=== PATIENT | female | born 1970 | race Caucasian/White ===

== ENCOUNTER 2021-04-14 12:03 | Inpatient (IN) | payer OTHER ==
[~2021-04-14] VITALS: Ht 165.1 cm; Wt 79.0 kg
[2021-04-14] MEDS ORDERED: HYDROcodone-ACET 10/325MG TAB PO ONE (12:15)
[2021-04-14] MEDS ORDERED: ENOXAPARIN SOD 100 MG/1 ML SYRINGE SC ONE (13:45)
[2021-04-14 13:46] LABS: Basophils # (auto) 0.1 10 ^3/uL (0-0.2); Basophils % (auto) 1.1 % (0.0-2.0); Eosinophils # (auto) 0 10 ^3/uL (0-0.8); Eosinophils % (auto) 0.2 % (0.0-7.0); Hematocrit 39.6 % (36.0-46.0); Hemoglobin 13.2 g/dL (12.2-16.2); Lymphocytes # (auto) 1.1 10 ^3/uL (0.4-5.4); Lymphocytes % (auto) 10.7 % (10.0-50.0); Mean Corpuscular Hemoglobin 28.4 pg (28.0-32.0); Mean Corpuscular Hgb Conc. 33.4 g/dL (32.0-36.0); Mean Corpuscular Volume 85.1 fL (80.0-100.0); Monocytes # (auto) 1.1 10 ^3/uL (0-1.3); Monocytes % (auto) 10.4 % (0.0-12.0); Neutrophils # (auto) 8.3 10 ^3/uL (1.6-8.6); Neutrophils % (auto) 77.6 % (37.0-80.0); Red Blood Cells 4.65 10^6/uL (4.0-5.20); Red Cell Distribution Width 13.6 % (11.8-14.3); White Blood Cell 10.8 10^3/uL (4.4-10.8)
[2021-04-14 13:54] LABS: Albumin 3.4 g/dL (3.4-5.0); Calcium 9.6 mg/dL (8.5-10.1); Potassium 4.5 mmol/L (3.5-5.1)
[2021-04-14] MEDS ORDERED: IOHEXOL 300 MG/ML 100ML BOTTLE IJ ONE (13:55)
[2021-04-14 13:58] LABS: Bilirubin, Total 0.9 mg/dL (0.2-1.0); Partial Thromboplastin Time 24.2 sec (23.6-33.0); Total Protein 7.1 g/dL (6.4-8.2)
[2021-04-14 16:42] LABS: Basophils # (auto) 0.1 10 ^3/uL (0-0.2); Basophils % (auto) 1.1 % (0.0-2.0); Eosinophils # (auto) 0.1 10 ^3/uL (0-0.8); Eosinophils % (auto) 0.5 % (0.0-7.0); Hematocrit 37.8 % (36.0-46.0); Hemoglobin 12.8 g/dL (12.2-16.2); Lymphocytes # (auto) 1.7 10 ^3/uL (0.4-5.4); Lymphocytes % (auto) 17.6 % (10.0-50.0); Mean Corpuscular Hemoglobin 28.9 pg (28.0-32.0); Mean Corpuscular Volume 85.2 fL (80.0-100.0); Monocytes # (auto) 0.9 10 ^3/uL (0-1.3); Monocytes % (auto) 9.8 % (0.0-12.0); Neutrophils # (auto) 6.7 10 ^3/uL (1.6-8.6); Nucleated Red Blood Cells % 0.1 %; Red Blood Cells 4.44 10^6/uL (4.0-5.20); Red Cell Distribution Width 13.8 % (11.8-14.3); White Blood Cell 9.5 10^3/uL (4.4-10.8)
[2021-04-14] MEDS: HEPARIN DRIP/D5W 100UNITS/ML 250 ML IV SCH (17:36)
[2021-04-14] MEDS ORDERED: ONDANSETRON HCL 4 MG/2 ML VIAL IV PRN (19:00)
[2021-04-14] MEDS ORDERED: MORPHINE SULFATE INJECTION 2 MG/ML SYRG IV PRN (19:00)
[2021-04-14] MEDS ORDERED: LABETALOL HCL 5 MG/ML 4ML SYRINGE IV PRN (19:00)
[2021-04-14] MEDS ORDERED: DOCUSATE CALCIUM 240 MG CAP PO PRN (19:00)
[2021-04-14] MEDS ORDERED: SODIUM CHLORIDE 0.9% 1,000 ML IV ONE (19:00)
[2021-04-14] MEDS ORDERED: NITROGLYCERIN 0.4 MG SL TAB SL PRN (19:00)
[2021-04-14 20:36] VITALS: BP 104/66
[2021-04-14 21:15] VITALS: BP 104/66
[2021-04-14] MEDS: MORPHINE SULFATE INJECTION 2 MG/ML SYRG IV PRN (21:34)
[2021-04-14 22:55] LABS: Urine Bacteria FEW /hpf (None Seen); Urine Blood 2+ /uL (Negative); Urine Mucus FEW (None Seen); Urine WBC 36 /hpf (0 - 5)
[2021-04-14 22:56] LABS: Urine Specific Gravity > 1.050 (1.001-1.035)
[2021-04-14] MEDS: SODIUM CHLORIDE 0.9% 1,000 ML IV SCH ×2 (23:00→23:11)
[2021-04-14] MEDS: LORazepam 2MG/ML-1ML VIAL IV PRN (23:40)
[2021-04-14 23:41] LABS: INR 1.11 (0.9-1.15); Partial Thromboplastin Time 66.9 sec (23.6-33.0)
[2021-04-15 05:00] VITALS: BP 103/74
[2021-04-15 07:03] LABS: Basophils # (auto) 0.1 10 ^3/uL (0-0.2); Basophils % (auto) 0.8 % (0.0-2.0); Eosinophils # (auto) 0.1 10 ^3/uL (0-0.8); Eosinophils % (auto) 1.3 % (0.0-7.0); Hematocrit 34.6 % (36.0-46.0); Lymphocytes # (auto) 1.5 10 ^3/uL (0.4-5.4); Lymphocytes % (auto) 23.1 % (10.0-50.0); Mean Corpuscular Hemoglobin 29.6 pg (28.0-32.0); Mean Corpuscular Hgb Conc. 34.7 g/dL (32.0-36.0); Mean Corpuscular Volume 85.1 fL (80.0-100.0); Monocytes # (auto) 0.9 10 ^3/uL (0-1.3); Monocytes % (auto) 14.1 % (0.0-12.0); Neutrophils # (auto) 3.9 10 ^3/uL (1.6-8.6); Neutrophils % (auto) 60.7 % (37.0-80.0); Nucleated Red Blood Cells % 0.1 %; Red Blood Cells 4.06 10^6/uL (4.0-5.20); Red Cell Distribution Width 14.1 % (11.8-14.3); White Blood Cell 6.4 10^3/uL (4.4-10.8)
[2021-04-15 07:17] LABS: INR 1.08 (0.9-1.15)
[2021-04-15 07:26] LABS: Chloride 112 mmol/L (98-107); Potassium 3.7 mmol/L (3.5-5.1); Sodium 142 mmol/L (136-145)
[2021-04-15 07:30] LABS: Albumin 2.6 g/dL (3.4-5.0); Anion Gap 9 (5-15); Blood Urea Nitrogen 16 mg/dL (7-18); Carbon Dioxide 21 mmol/L (21-32); Glucose 103 mg/dL (74-106)
[2021-04-15 07:31] LABS: Partial Thromboplastin Time 109.3 sec (23.6-33.0)
[2021-04-15] MEDS: MORPHINE SULFATE INJECTION 2 MG/ML SYRG IV PRN ×2 (07:52→20:47)
[2021-04-15 08:00] VITALS: BP 111/68
[2021-04-15 08:16] LABS: Alanine Aminotransferase 35 U/L (13-56); Alkaline Phosphatase 71 U/L (45-117); Aspartate Aminotransferase 23 U/L (15-37); BUN/Creatinine Ratio 18.8; Bilirubin, Total 0.9 mg/dL (0.2-1.0); GFR African American 91 mL/min; GFR Non-African American 75 mL/min
[2021-04-15] MEDS: SODIUM CHLORIDE 0.9% 1,000 ML IV SCH ×2 (08:50→20:01)
[2021-04-15] MEDS: PANTOPRAZOLE 40 MG TAB PO SCH (08:51)
[2021-04-15 09:00] VITALS: BP 111/68
[2021-04-15] MEDS: HEPARIN DRIP/D5W 100UNITS/ML 250 ML IV SCH ×2 (11:22→20:13)
[2021-04-15] MEDS ORDERED: IODIXANOL 320MG/ML 100ML BTL IV ONE ×2 (11:43→15:13)
[2021-04-15] MEDS ORDERED: LIDOCAINE 2%HCL (LOCAL ANESTH.) INJ 20ML MDV ONE ×2 (11:43→12:14)
[2021-04-15] MEDS ORDERED: fentaNYL CITRATE 100 MCG/2 ML VL ONE ×2 (12:02→14:37)
[2021-04-15] MEDS ORDERED: MIDAZOLAM HCL 2MG/2ML 2ml VIAL (1mg/ml) ONE ×2 (12:02→13:13)
[2021-04-15] MEDS ORDERED: HYDROmorphone HCL 2 MG/ML VL ONE ×2 (12:54→14:41)
[2021-04-15] MEDS ORDERED: HEPARIN SODIUM (PORCINE) 5000 UNITS/ML 1ML VIAL ONE ×3 (12:57→13:59)
[2021-04-15 13:00] VITALS: BP 145/99
[2021-04-15 13:01] LABS: Free T3 3.08 pg/mL (2.3-4.2); Free T4 (Free Thyroxine) 1.3 ng/dL (0.89-1.76)
[2021-04-15] MEDS ORDERED: LORazepam 2MG/ML-1ML VIAL ONE (13:42)
[2021-04-15] MEDS ORDERED: diphenhdrAMINE HCL 50 MG/1 ML VL ONE (13:52)
[2021-04-15] MEDS ORDERED: SODIUM CHLORIDE 0.9% 1,000 ML IV ONE (16:00)
[2021-04-15 17:54] LABS: Basophils # (auto) 0 10 ^3/uL (0-0.2); Basophils % (auto) 0.4 % (0.0-2.0); Eosinophils # (auto) 0 10 ^3/uL (0-0.8); Eosinophils % (auto) 0.5 % (0.0-7.0); Hematocrit 33.3 % (36.0-46.0); Hemoglobin 11.1 g/dL (12.2-16.2); Lymphocytes # (auto) 1.3 10 ^3/uL (0.4-5.4); Lymphocytes % (auto) 15.8 % (10.0-50.0); Mean Corpuscular Hemoglobin 28.8 pg (28.0-32.0); Mean Corpuscular Hgb Conc. 33.4 g/dL (32.0-36.0); Mean Corpuscular Volume 86.1 fL (80.0-100.0); Monocytes # (auto) 1.3 10 ^3/uL (0-1.3); Monocytes % (auto) 15.6 % (0.0-12.0); Neutrophils # (auto) 5.5 10 ^3/uL (1.6-8.6); Neutrophils % (auto) 67.7 % (37.0-80.0); Red Blood Cells 3.87 10^6/uL (4.0-5.20); Red Cell Distribution Width 13.8 % (11.8-14.3); White Blood Cell 8.1 10^3/uL (4.4-10.8)
[2021-04-15 19:08] LABS: Partial Thromboplastin Time > 139.0 sec (23.6-33.0)
[2021-04-15 23:03] VITALS: BP 117/67
[2021-04-16] MEDS: MORPHINE SULFATE INJECTION 2 MG/ML SYRG IV PRN ×4 (02:10→15:24)
[2021-04-16 02:36] LABS: INR 1.09 (0.9-1.15); Partial Thromboplastin Time 55.2 sec (23.6-33.0)
[2021-04-16 05:13] VITALS: BP 98/66
[2021-04-16 08:00] VITALS: BP 109/68
[2021-04-16 08:17] LABS: Basophils # (auto) 0 10 ^3/uL (0-0.2); Basophils % (auto) 0.7 % (0.0-2.0); Eosinophils # (auto) 0.1 10 ^3/uL (0-0.8); Hematocrit 28.8 % (36.0-46.0); Hemoglobin 9.5 g/dL (12.2-16.2); Lymphocytes # (auto) 1.2 10 ^3/uL (0.4-5.4); Lymphocytes % (auto) 19.4 % (10.0-50.0); Mean Corpuscular Hemoglobin 28.5 pg (28.0-32.0); Mean Corpuscular Hgb Conc. 33.2 g/dL (32.0-36.0); Mean Corpuscular Volume 85.9 fL (80.0-100.0); Monocytes # (auto) 0.9 10 ^3/uL (0-1.3); Monocytes % (auto) 14.6 % (0.0-12.0); Neutrophils # (auto) 3.9 10 ^3/uL (1.6-8.6); Neutrophils % (auto) 63.3 % (37.0-80.0); Red Blood Cells 3.35 10^6/uL (4.0-5.20); Red Cell Distribution Width 13.7 % (11.8-14.3); White Blood Cell 6.1 10^3/uL (4.4-10.8)
[2021-04-16 08:22] LABS: Albumin 2.2 g/dL (3.4-5.0); BUN/Creatinine Ratio 11.8; Magnesium 2.1 mg/dL (1.6-2.6); Potassium 3.7 mmol/L (3.5-5.1)
[2021-04-16 08:25] LABS: Bilirubin, Total 0.8 mg/dL (0.2-1.0); Total Protein 5.3 g/dL (6.4-8.2)
[2021-04-16 08:31] LABS: INR 1.05 (0.9-1.15); Partial Thromboplastin Time 45.3 sec (23.6-33.0)
[2021-04-16 09:00] VITALS: BP 109/68
[2021-04-16] MEDS: PANTOPRAZOLE 40 MG TAB PO SCH (09:10)
[2021-04-16] MEDS: HEPARIN DRIP/D5W 100UNITS/ML 250 ML IV SCH ×2 (10:49→22:10)
[2021-04-16] MEDS: SODIUM CHLORIDE 0.9% 1,000 ML IV SCH (10:50)
[2021-04-16 13:00] VITALS: BP 103/61
[2021-04-16 17:00] VITALS: BP 97/56
[2021-04-16] MEDS ORDERED: IOHEXOL 300 MG/ML 100ML BOTTLE IJ ONE (18:42)
[2021-04-16] MEDS: LORazepam 2MG/ML-1ML VIAL IV PRN (20:56)
[2021-04-16 21:41] LABS: INR 1.05 (0.9-1.15); Partial Thromboplastin Time 43.6 sec (23.6-33.0)
[2021-04-16] MEDS ORDERED: HYDROcodone-ACET 5/325MG TAB PO PRN (21:45)
[2021-04-16 22:00] VITALS: BP 111/70
[2021-04-17] VITALS (42 sets, daily range): BP systolic 69–153; BP diastolic 26–106
[2021-04-17] MEDS: MORPHINE SULFATE INJECTION 2 MG/ML SYRG IV PRN ×2 (00:06→03:45)
[2021-04-17] MEDS: SODIUM CHLORIDE 0.9% 1,000 ML IV SCH ×3 (00:20→21:15)
[2021-04-17] MEDS ORDERED: HYDROmorphone HCL 2 MG/ML VL IV ONE ×2 (00:30→02:00)
[2021-04-17] MEDS ORDERED: HYDROmorphone HCL 2 MG/ML VL IV PRN (05:15)
[2021-04-17] MEDS: LEVOTHYROXINE SODIUM 50 MCG TAB PO SCH (06:32)
[2021-04-17 06:44] LABS: Eosinophils # (auto) 0 10 ^3/uL (0-0.8); Lymphocytes % (auto) 9.6 % (10.0-50.0); Mean Corpuscular Volume 87.5 fL (80.0-100.0); Monocytes # (auto) 1.6 10 ^3/uL (0-1.3); Monocytes % (auto) 8.8 % (0.0-12.0)
[2021-04-17 06:46] LABS: Basophils # (auto) 0.1 10 ^3/uL (0-0.2); Basophils % (auto) 0.3 % (0.0-2.0); Eosinophils % (auto) 0.1 % (0.0-7.0); Hematocrit 22.3 % (36.0-46.0); Hemoglobin 7.3 g/dL (12.2-16.2); Lymphocytes # (auto) 1.7 10 ^3/uL (0.4-5.4); Mean Corpuscular Hemoglobin 28.5 pg (28.0-32.0); Mean Corpuscular Hgb Conc. 32.5 g/dL (32.0-36.0); Neutrophils # (auto) 14.5 10 ^3/uL (1.6-8.6); Neutrophils % (auto) 81.2 % (37.0-80.0); Red Blood Cells 2.55 10^6/uL (4.0-5.20); Red Cell Distribution Width 13.9 % (11.8-14.3); White Blood Cell 17.9 10^3/uL (4.4-10.8)
[2021-04-17 06:55] LABS: INR 1.13 (0.9-1.15); Partial Thromboplastin Time 68.6 sec (23.6-33.0)
[2021-04-17 07:07] LABS: BUN/Creatinine Ratio 8.3; Calcium 8.2 mg/dL (8.5-10.1); Magnesium 2.2 mg/dL (1.6-2.6); Potassium 3.6 mmol/L (3.5-5.1)
[2021-04-17] MEDS ORDERED: MIDAZOLAM DRIP 50 mg/50mL 50 ML IV ONE ×2 (08:20→14:24)
[2021-04-17] MEDS ORDERED: NOREPINEPHRINE 8 MG/250ML KIT 250 ML IV ONE (08:34)
[2021-04-17] MEDS ORDERED: LIDOCAINE 2%HCL (LOCAL ANESTH.) INJ 20ML MDV ONE ×2 (08:48→09:48)
[2021-04-17] MEDS ORDERED: IODIXANOL 320MG/ML 100ML BTL IV ONE ×4 (08:55→13:15)
[2021-04-17] MEDS ORDERED: ROCURONIUM 10MG/ML 10ML VIAL IV ONE (09:26)
[2021-04-17] MEDS ORDERED: ETOMIDATE (2MG/ML) 20ML VIAL IV ONE (09:27)
[2021-04-17] MEDS ORDERED: SUCCINYLCHOLINE CHLORIDE 20 MG/ML 10ML VIAL IV ONE (09:27)
[2021-04-17] MEDS: PANTOPRAZOLE 40 MG TAB PO SCH (10:00)
[2021-04-17] MEDS ORDERED: ATROPINE SULF 1 MG/10ml SYR ONE (10:03)
[2021-04-17] MEDS ORDERED: EPINEPHrine HCL 1 MG/10 ML SYRG ONE (10:03)
[2021-04-17] MEDS ORDERED: SODIUM BICARBONATE 8.4 % INJ 50ML VIAL IV ONE ×2 (10:38→10:40)
[2021-04-17] MEDS ORDERED: NITROGLYCERIN 0.4 MG SL TAB SL PRN (10:45)
[2021-04-17] MEDS ORDERED: SODIUM CHLORIDE 0.9% 1,000 ML IV SCH (10:45)
[2021-04-17] MEDS ORDERED: MORPHINE SULFATE INJECTION 2 MG/ML SYRG IV PRN (10:45)
[2021-04-17 10:59] LABS: Hemoglobin 7.8 g/dL (12.2-16.2); Mean Corpuscular Hemoglobin 28.2 pg (28.0-32.0); Mean Corpuscular Hgb Conc. 30.1 g/dL (32.0-36.0); Mean Corpuscular Volume 93.8 fL (80.0-100.0); Red Blood Cells 2.77 10^6/uL (4.0-5.20); Red Cell Distribution Width 14.2 % (11.8-14.3)
[2021-04-17 11:02] LABS: INR 1.63 (0.9-1.15)
[2021-04-17] MEDS ORDERED: IOHEXOL 350 MG/ML 100ML IJ ONE (11:44)
[2021-04-17 12:07] LABS: White Blood Cell 36.7 10^3/uL (4.4-10.8)
[2021-04-17 12:08] LABS: Basophils % (manual) 0 (0.0-2.0); Blast Cells 0; Eosinophils % (manual) 0 (0-7); Promyelocytes % 0; Reactive Lymphocytes 0
[2021-04-17] MEDS ORDERED: PIPERACILLIN-TAZO 4.5GM 100 ML IV ONE (12:45)
[2021-04-17 12:59] LABS: Band Neutrophils % (manual) 18; Lymphocytes % (manual) 24 (10.0-50.0); Metamyelocytes % 9; Monocytes % (manual) 9 (0-12); Myelocytes % 3
[2021-04-17 15:11] LABS: Red Cell Distribution Width 13.8 % (11.8-14.3)
[2021-04-17 15:13] LABS: Hematocrit 20.2 % (36.0-46.0); Mean Corpuscular Hemoglobin 28.6 pg (28.0-32.0); Mean Corpuscular Hgb Conc. 32.6 g/dL (32.0-36.0); Mean Corpuscular Volume 87.6 fL (80.0-100.0); White Blood Cell 12.1 10^3/uL (4.4-10.8)
[2021-04-17 15:18] LABS: Albumin 1.5 g/dL (3.4-5.0); Calcium 6.3 mg/dL (8.5-10.1); Potassium 3.6 mmol/L (3.5-5.1)
[2021-04-17 15:20] LABS: Hemoglobin 6.6 g/dL (12.2-16.2)
[2021-04-17 15:22] LABS: Basophils % (manual) 0 (0.0-2.0); Blast Cells 0; Myelocytes % 0; Promyelocytes % 0; Reactive Lymphocytes 0
[2021-04-17 15:35] LABS: BUN/Creatinine Ratio 8.7; Bilirubin, Total 0.8 mg/dL (0.2-1.0); Total Protein 3.7 g/dL (6.4-8.2)
[2021-04-17] MEDS: MIDAZOLAM DRIP 50 mg/50mL 50 ML IV SCH (16:30)
[2021-04-17] MEDS: NOREPINEPHRINE 8 MG/250ML KIT 250 ML IV SCH (16:30)
[2021-04-17 16:37] LABS: Band Neutrophils % (manual) 20; Eosinophils % (manual) 1 (0-7); Lymphocytes % (manual) 17 (10.0-50.0); Metamyelocytes % 4; Monocytes % (manual) 7 (0-12)
[2021-04-17] MEDS ORDERED: PHENYLEPHRINE IV 250 ML IV ONE (18:58)
[2021-04-17] MEDS: PHENYLEPHRINE IV 250 ML IV SCH (19:00)
[2021-04-17] MEDS: PIPERACILLIN-TAZO 4.5GM 100 ML IV SCH (22:04)
[2021-04-17] MEDS ORDERED: ALBUMIN 25% 100 ML IV ONE (22:15)
[2021-04-18] VITALS (108 sets, daily range): BP systolic 74–138; BP diastolic 32–69
[2021-04-18] MEDS: PHENYLEPHRINE IV 250 ML IV SCH ×3 (03:24→23:00)
[2021-04-18 04:29] LABS: Hematocrit 27.1 % (36.0-46.0); Hemoglobin 9.1 g/dL (12.2-16.2); Mean Corpuscular Hemoglobin 29.7 pg (28.0-32.0); Mean Corpuscular Hgb Conc. 33.7 g/dL (32.0-36.0); Red Blood Cells 3.08 10^6/uL (4.0-5.20); Red Cell Distribution Width 15.4 % (11.8-14.3); White Blood Cell 11.9 10^3/uL (4.4-10.8)
[2021-04-18 04:36] LABS: Basophils % (manual) 0 (0.0-2.0); Blast Cells 0; Eosinophils % (manual) 0 (0-7); Metamyelocytes % 0; Promyelocytes % 0; Reactive Lymphocytes 0
[2021-04-18 04:42] LABS: Potassium 3.3 mmol/L (3.5-5.1)
[2021-04-18 04:47] LABS: Albumin 2.1 g/dL (3.4-5.0); BUN/Creatinine Ratio 8.4
[2021-04-18 04:55] LABS: Total Protein 4.5 g/dL (6.4-8.2)
[2021-04-18 05:19] LABS: Bilirubin, Total 1.3 mg/dL (0.2-1.0)
[2021-04-18] MEDS: LEVOTHYROXINE SODIUM 50 MCG TAB PO SCH (05:20)
[2021-04-18] MEDS: PIPERACILLIN-TAZO 4.5GM 100 ML IV SCH ×3 (05:20→22:00)
[2021-04-18 05:26] LABS: Magnesium 1.7 mg/dL (1.6-2.6)
[2021-04-18 06:26] LABS: Band Neutrophils % (manual) 39; Lymphocytes % (manual) 13 (10.0-50.0); Monocytes % (manual) 15 (0-12); Myelocytes % 5
[2021-04-18] MEDS: PANTOPRAZOLE 40 MG TAB PO SCH (10:00)
[2021-04-18] MEDS: fentaNYL Drip 2500mCg/250mlNS 250 ML IV SCH (10:00)
[2021-04-18] MEDS ORDERED: POTASSIUM CHLORIDE 60 MEQ, LIDOCAINE 1% (LOCAL ANESTH.) 6 ML in SODIUM CHL 0.9% 500 ML IV ONE (11:00)
[2021-04-18] MEDS ORDERED: SODIUM BICARBONATE 8.4 % INJ 50ML VIAL IV ONE (12:44)
[2021-04-18 15:19] LABS: Hemoglobin 7.4 g/dL (12.2-16.2)
[2021-04-18 15:21] LABS: Hematocrit 21.9 % (36.0-46.0); Mean Corpuscular Hemoglobin 28.8 pg (28.0-32.0); Mean Corpuscular Hgb Conc. 33.7 g/dL (32.0-36.0); Mean Corpuscular Volume 85.4 fL (80.0-100.0); Red Blood Cells 2.56 10^6/uL (4.0-5.20); Red Cell Distribution Width 15.2 % (11.8-14.3); White Blood Cell 21.9 10^3/uL (4.4-10.8)
[2021-04-18 15:25] LABS: Basophils % (manual) 0 (0.0-2.0); Blast Cells 0; Eosinophils % (manual) 0 (0-7); Promyelocytes % 0; Reactive Lymphocytes 0
[2021-04-18 15:32] LABS: INR 1.47 (0.9-1.15); Partial Thromboplastin Time 29.6 sec (23.6-33.0)
[2021-04-18 15:37] LABS: Albumin 1.9 g/dL (3.4-5.0); Calcium 6.4 mg/dL (8.5-10.1); Potassium 4.8 mmol/L (3.5-5.1)
[2021-04-18 15:46] LABS: Total Protein 4.2 g/dL (6.4-8.2)
[2021-04-18] MEDS ORDERED: BUMETANIDE 2.5mg/10ml (0.25 mg/ml) INJ IV ONE (16:45)
[2021-04-18 16:54] LABS: Band Neutrophils % (manual) 38; Lymphocytes % (manual) 11 (10.0-50.0); Metamyelocytes % 2; Monocytes % (manual) 13 (0-12); Myelocytes % 1
[2021-04-18] MEDS: MIDAZOLAM DRIP 50 mg/50mL 50 ML IV SCH ×2 (17:59→21:00)
[2021-04-18] MEDS: NOREPINEPHRINE 8 MG/250ML KIT 250 ML IV SCH (18:00)
[2021-04-18] MEDS: SODIUM BICARBONATE 50ML VIAL 100 ML in D5W 5% 1,000 ML IV SCH ×2 (18:01→22:00)
[2021-04-19] VITALS (103 sets, daily range): BP systolic 84–131; BP diastolic 44–72
[2021-04-19] MEDS: NOREPINEPHRINE 8 MG/250ML KIT 250 ML IV SCH ×3 (00:18→23:01)
[2021-04-19] MEDS: MIDAZOLAM DRIP 50 mg/50mL 50 ML IV SCH ×3 (00:30→17:55)
[2021-04-19] MEDS: PHENYLEPHRINE IV 250 ML IV SCH ×3 (04:20→21:00)
[2021-04-19] MEDS ORDERED: FUROSEMIDE 100 MG/10ML VIAL IV SCH (06:00)
[2021-04-19] MEDS: PIPERACILLIN-TAZO 4.5GM 100 ML IV SCH (06:00)
[2021-04-19 06:20] LABS: Red Cell Distribution Width 15.7 % (11.8-14.3)
[2021-04-19 06:23] LABS: Mean Corpuscular Hgb Conc. 35.1 g/dL (32.0-36.0); Mean Corpuscular Volume 85.5 fL (80.0-100.0); Red Blood Cells 1.88 10^6/uL (4.0-5.20); White Blood Cell 20.8 10^3/uL (4.4-10.8)
[2021-04-19 06:34] LABS: INR 1.43 (0.9-1.15); Partial Thromboplastin Time 33.5 sec (23.6-33.0)
[2021-04-19 06:39] LABS: Potassium 4.8 mmol/L (3.5-5.1)
[2021-04-19 06:45] LABS: Hematocrit 16.2 % (36.0-46.0)
[2021-04-19 06:46] LABS: Hemoglobin 5.7 g/dL (12.2-16.2)
[2021-04-19 06:47] LABS: Basophils % (manual) 0 (0.0-2.0); Blast Cells 0; Promyelocytes % 0; Reactive Lymphocytes 0
[2021-04-19 06:52] LABS: Albumin 1.5 g/dL (3.4-5.0); BUN/Creatinine Ratio 10.1; Bilirubin, Total 0.8 mg/dL (0.2-1.0); Calcium 6.1 mg/dL (8.5-10.1); Total Protein 4.1 g/dL (6.4-8.2)
[2021-04-19 08:30] LABS: Band Neutrophils % (manual) 36; Eosinophils % (manual) 2 (0-7); Lymphocytes % (manual) 12 (10.0-50.0); Metamyelocytes % 6; Monocytes % (manual) 12 (0-12); Myelocytes % 1
[2021-04-19] MEDS: SODIUM BICARBONATE 50ML VIAL 100 ML in D5W 5% 1,000 ML IV SCH ×2 (09:00→17:15)
[2021-04-19 09:09] LABS: Hematocrit 16.4 % (36.0-46.0)
[2021-04-19 09:14] LABS: Hemoglobin 5.5 g/dL (12.2-16.2)
[2021-04-19] MEDS: fentaNYL Drip 2500mCg/250mlNS 250 ML IV SCH (09:45)
[2021-04-19] MEDS: FUROSEMIDE INJECTION 100 MG in SODIUM CHL 0.9% 100 ML IV SCH ×5 (10:50→21:57)
[2021-04-19] MEDS: FAMOTIDINE (10MG/ML) 2ML VL IV SCH (10:56)
[2021-04-19] MEDS ORDERED: LIDOCAINE 2% (LOCAL ANESTH.) PF 5ml SDV ONE (15:03)
[2021-04-19] MEDS ORDERED: LIDOCAINE 2%HCL (LOCAL ANESTH.) INJ 10ml MDV IJ ONE (15:03)
[2021-04-19] MEDS ORDERED: IOHEXOL 350 MG/ML 100ML IJ ONE (16:00)
[2021-04-19] MEDS ORDERED: SODIUM BICARBONATE 50ML VIAL 100 ML in D5W 5% 1,000 ML IV SCH (19:30)
[2021-04-19] MEDS: PIPERACILLIN-TAZOB 2.25GM 50 ML IV SCH (20:08)
[2021-04-20] VITALS (117 sets, daily range): BP systolic 60–167; BP diastolic 46–89
[2021-04-20] MEDS: FUROSEMIDE INJECTION 100 MG in SODIUM CHL 0.9% 100 ML IV SCH ×9 (00:13→22:01)
[2021-04-20] MEDS: PIPERACILLIN-TAZOB 2.25GM 50 ML IV SCH ×4 (00:13→22:01)
[2021-04-20] MEDS: MIDAZOLAM DRIP 50 mg/50mL 50 ML IV SCH ×5 (02:20→20:21)
[2021-04-20] MEDS: NOREPINEPHRINE 8 MG/250ML KIT 250 ML IV SCH ×4 (03:20→23:40)
[2021-04-20] MEDS: PHENYLEPHRINE IV 250 ML IV SCH ×3 (05:17→22:00)
[2021-04-20 05:21] LABS: Hematocrit 21.6 % (36.0-46.0); Hemoglobin 7.3 g/dL (12.2-16.2); Mean Corpuscular Hemoglobin 30.1 pg (28.0-32.0); Mean Corpuscular Volume 88.5 fL (80.0-100.0); Red Blood Cells 2.44 10^6/uL (4.0-5.20); Red Cell Distribution Width 16.9 % (11.8-14.3); White Blood Cell 24.3 10^3/uL (4.4-10.8)
[2021-04-20 05:35] LABS: Basophils % (manual) 0 (0.0-2.0); Blast Cells 0; Myelocytes % 0; Promyelocytes % 0
[2021-04-20 05:39] LABS: Potassium 5.3 mmol/L (3.5-5.1)
[2021-04-20 05:48] LABS: BUN/Creatinine Ratio 10.2
[2021-04-20 05:49] LABS: Albumin 1.6 g/dL (3.4-5.0); Bilirubin, Total 1.7 mg/dL (0.2-1.0); Calcium 6.5 mg/dL (8.5-10.1); Total Protein 4.4 g/dL (6.4-8.2)
[2021-04-20] MEDS ORDERED: SODIUM CHL 0.9% 1000 ML BAG XX ONE (07:00)
[2021-04-20 09:16] LABS: Band Neutrophils % (manual) 30; Eosinophils % (manual) 3 (0-7); Lymphocytes % (manual) 14 (10.0-50.0); Metamyelocytes % 1; Monocytes % (manual) 7 (0-12); Reactive Lymphocytes 2
[2021-04-20] MEDS: FAMOTIDINE (10MG/ML) 2ML VL IV SCH (10:07)
[2021-04-20] MEDS: fentaNYL Drip 2500mCg/250mlNS 250 ML IV SCH (10:10)
[2021-04-20] MEDS ORDERED: Nepro With Carb Steady 1 Liter Bottle GT SCH (14:00)
[2021-04-20 14:40] LABS: INR 1.16 (0.9-1.15); Partial Thromboplastin Time 29.3 sec (23.6-33.0)
[2021-04-20 14:44] LABS: Hematocrit 17.7 % (36.0-46.0); Mean Corpuscular Hemoglobin 30.8 pg (28.0-32.0); Mean Corpuscular Hgb Conc. 35.3 g/dL (32.0-36.0); Mean Corpuscular Volume 87.3 fL (80.0-100.0); Red Blood Cells 2.03 10^6/uL (4.0-5.20); Red Cell Distribution Width 16.3 % (11.8-14.3)
[2021-04-20 14:48] LABS: Hemoglobin 6.2 g/dL (12.2-16.2)
[2021-04-20 14:50] LABS: Basophils % (manual) 0 (0.0-2.0); Blast Cells 0; Promyelocytes % 0; Reactive Lymphocytes 0
[2021-04-20] MEDS ORDERED: [UNRECOGNIZED DRUG - OTHER] SCH (16:00)
[2021-04-20] MEDS ORDERED: SODIUM CHL 0.9% SCH (16:00)
[2021-04-20 16:25] LABS: Band Neutrophils % (manual) 22; Eosinophils % (manual) 2 (0-7); Lymphocytes % (manual) 10 (10.0-50.0); Metamyelocytes % 1; Monocytes % (manual) 4 (0-12); Myelocytes % 1
[2021-04-20] MEDS ORDERED: ALBUMIN 25% 100 ML IV ONE ×2 (16:30)
[2021-04-20] MEDS ORDERED: EPOETIN ALFA-EPBX 10,000 UNIT/1ML VIAL SC ONE (21:00)
[2021-04-21] VITALS (99 sets, daily range): BP systolic 82–120; BP diastolic 51–70
[2021-04-21] MEDS: MIDAZOLAM DRIP 50 mg/50mL 50 ML IV SCH ×3 (01:42→15:37)
[2021-04-21] MEDS: PIPERACILLIN-TAZOB 2.25GM 50 ML IV SCH ×5 (01:57→23:58)
[2021-04-21 04:38] LABS: Hematocrit 25.4 % (36.0-46.0); Mean Corpuscular Hemoglobin 30.7 pg (28.0-32.0); Mean Corpuscular Hgb Conc. 35.6 g/dL (32.0-36.0); Mean Corpuscular Volume 86.1 fL (80.0-100.0); Red Blood Cells 2.95 10^6/uL (4.0-5.20); Red Cell Distribution Width 15.6 % (11.8-14.3); White Blood Cell 18.2 10^3/uL (4.4-10.8)
[2021-04-21 04:46] LABS: Basophils % (manual) 0 (0.0-2.0); Blast Cells 0; Myelocytes % 0; Promyelocytes % 0; Reactive Lymphocytes 0
[2021-04-21 04:48] LABS: INR 1.14 (0.9-1.15); Partial Thromboplastin Time 27.9 sec (23.6-33.0)
[2021-04-21 04:51] LABS: Albumin 1.9 g/dL (3.4-5.0); Calcium 6.9 mg/dL (8.5-10.1); Potassium 4.2 mmol/L (3.5-5.1)
[2021-04-21 04:53] LABS: BUN/Creatinine Ratio 10.2; Bilirubin, Total 1.9 mg/dL (0.2-1.0); Total Protein 4.9 g/dL (6.4-8.2)
[2021-04-21] MEDS: FUROSEMIDE INJECTION 100 MG in SODIUM CHL 0.9% 100 ML IV SCH ×4 (05:15→17:15)
[2021-04-21] MEDS: PHENYLEPHRINE IV 250 ML IV SCH ×3 (06:20→23:00)
[2021-04-21 07:45] LABS: Band Neutrophils % (manual) 27; Eosinophils % (manual) 5 (0-7); Lymphocytes % (manual) 10 (10.0-50.0); Metamyelocytes % 1; Monocytes % (manual) 5 (0-12)
[2021-04-21] MEDS: fentaNYL Drip 2500mCg/250mlNS 250 ML IV SCH (09:45)
[2021-04-21] MEDS: FAMOTIDINE (10MG/ML) 2ML VL IV SCH (09:48)
[2021-04-21] MEDS: NOREPINEPHRINE 8 MG/250ML KIT 250 ML IV SCH (09:53)
[2021-04-21 10:24] LABS: Hepatitis A Ab IgM Negative; Hepatitis B Core IgM Negative; Hepatitis C Antibody Negative (Negative)
[2021-04-22] VITALS (107 sets, daily range): BP systolic 92–136; BP diastolic 55–79
[2021-04-22] MEDS: fentaNYL Drip 2500mCg/250mlNS 250 ML IV SCH
[2021-04-22] MEDS: FUROSEMIDE INJECTION 100 MG in SODIUM CHL 0.9% 100 ML IV SCH ×6 (00:21→21:31)
[2021-04-22] MEDS: MIDAZOLAM DRIP 50 mg/50mL 50 ML IV SCH (01:58)
[2021-04-22 04:39] LABS: Hematocrit 26.8 % (36.0-46.0)
[2021-04-22 04:43] LABS: Hemoglobin 9.1 g/dL (12.2-16.2); Mean Corpuscular Volume 88.2 fL (80.0-100.0); Red Blood Cells 3.04 10^6/uL (4.0-5.20); White Blood Cell 18.1 10^3/uL (4.4-10.8)
[2021-04-22 05:00] LABS: Albumin 1.8 g/dL (3.4-5.0); Potassium 4.3 mmol/L (3.5-5.1)
[2021-04-22 05:05] LABS: BUN/Creatinine Ratio 11.4; Bilirubin, Total 1.6 mg/dL (0.2-1.0); Calcium 7.6 mg/dL (8.5-10.1)
[2021-04-22 05:14] LABS: Basophils % (manual) 0 (0.0-2.0); Blast Cells 0; Promyelocytes % 0; Reactive Lymphocytes 0
[2021-04-22] MEDS: PIPERACILLIN-TAZOB 2.25GM 50 ML IV SCH ×3 (05:32→17:44)
[2021-04-22] MEDS ORDERED: SODIUM CHL 0.9% 1000 ML BAG XX ONE (07:00)
[2021-04-22] MEDS: PHENYLEPHRINE IV 250 ML IV SCH ×2 (07:20→15:40)
[2021-04-22 07:33] LABS: Band Neutrophils % (manual) 22; Eosinophils % (manual) 6 (0-7); Lymphocytes % (manual) 7 (10.0-50.0); Metamyelocytes % 2; Monocytes % (manual) 5 (0-12); Myelocytes % 1
[2021-04-22] MEDS: FAMOTIDINE (10MG/ML) 2ML VL IV SCH (10:00)
[2021-04-22] MEDS: NOREPINEPHRINE 8 MG/250ML KIT 250 ML IV SCH (16:30)
[2021-04-22] MEDS ORDERED: EPOETIN ALFA-EPBX 10,000 UNIT/1ML VIAL SC ONE (21:00)
[2021-04-22] MEDS: ALBUMIN 25% 100 ML IV SCH (21:34)
[2021-04-23] VITALS (107 sets, daily range): BP systolic 98–153; BP diastolic 57–86
[2021-04-23] MEDS: FUROSEMIDE INJECTION 100 MG in SODIUM CHL 0.9% 100 ML IV SCH ×5 (03:17→20:32)
[2021-04-23] MEDS: ALBUMIN 25% 100 ML IV SCH ×2 (04:31→11:17)
[2021-04-23 04:48] LABS: Basophils # (auto) 0.1 10 ^3/uL (0-0.2); Lymphocytes # (auto) 0.9 10 ^3/uL (0.4-5.4)
[2021-04-23 04:51] LABS: Basophils % (auto) 0.5 % (0.0-2.0); Eosinophils # (auto) 0.4 10 ^3/uL (0-0.8); Eosinophils % (auto) 2.8 % (0.0-7.0); Hematocrit 25.4 % (36.0-46.0); Hemoglobin 8.6 g/dL (12.2-16.2); Lymphocytes % (auto) 5.8 % (10.0-50.0); Mean Corpuscular Hemoglobin 30.6 pg (28.0-32.0); Monocytes # (auto) 1.2 10 ^3/uL (0-1.3); Monocytes % (auto) 7.6 % (0.0-12.0); Neutrophils # (auto) 13.2 10 ^3/uL (1.6-8.6); Neutrophils % (auto) 83.3 % (37.0-80.0); Nucleated Red Blood Cells % 0.9 %; Red Blood Cells 2.83 10^6/uL (4.0-5.20); Red Cell Distribution Width 16.2 % (11.8-14.3); White Blood Cell 15.9 10^3/uL (4.4-10.8)
[2021-04-23 05:17] LABS: Potassium 4.2 mmol/L (3.5-5.1)
[2021-04-23 05:28] LABS: BUN/Creatinine Ratio 13.4; Bilirubin, Total 1.6 mg/dL (0.2-1.0); Calcium 7.6 mg/dL (8.5-10.1); Total Protein 4.9 g/dL (6.4-8.2)
[2021-04-23] MEDS: PIPERACILLIN-TAZOB 2.25GM 50 ML IV SCH ×4 (06:00→18:14)
[2021-04-23] MEDS: PHENYLEPHRINE IV 250 ML IV SCH ×3 (08:20→16:40)
[2021-04-23] MEDS: fentaNYL Drip 2500mCg/250mlNS 250 ML IV SCH ×2 (09:45→14:09)
[2021-04-23] MEDS: FAMOTIDINE (10MG/ML) 2ML VL IV SCH (10:15)
[2021-04-23] MEDS: MIDAZOLAM DRIP 50 mg/50mL 50 ML IV SCH (14:09)
[2021-04-23 15:16] LABS: Hemoglobin 8.4 g/dL (12.2-16.2)
[2021-04-23 15:18] LABS: Hematocrit 24.1 % (36.0-46.0)
[2021-04-23] MEDS: NOREPINEPHRINE 8 MG/250ML KIT 250 ML IV SCH (16:30)
[2021-04-24] VITALS (106 sets, daily range): BP systolic 87–154; BP diastolic 52–85
[2021-04-24] MEDS: PHENYLEPHRINE IV 250 ML IV SCH ×3 (00:32→12:34)
[2021-04-24] MEDS: FUROSEMIDE INJECTION 100 MG in SODIUM CHL 0.9% 100 ML IV SCH ×8 (02:22→21:00)
[2021-04-24] MEDS: MIDAZOLAM DRIP 50 mg/50mL 50 ML IV SCH ×4 (02:22→23:52)
[2021-04-24 05:16] LABS: Hemoglobin 8.4 g/dL (12.2-16.2); Mean Corpuscular Volume 90.2 fL (80.0-100.0)
[2021-04-24 05:19] LABS: Hematocrit 25.1 % (36.0-46.0); Mean Corpuscular Hemoglobin 30.1 pg (28.0-32.0); Mean Corpuscular Hgb Conc. 33.4 g/dL (32.0-36.0); Red Blood Cells 2.79 10^6/uL (4.0-5.20); Red Cell Distribution Width 16.3 % (11.8-14.3); White Blood Cell 17.5 10^3/uL (4.4-10.8)
[2021-04-24 05:31] LABS: INR 1.13 (0.9-1.15); Partial Thromboplastin Time 26.3 sec (23.6-33.0)
[2021-04-24 05:32] LABS: Albumin 2.2 g/dL (3.4-5.0); Calcium 7.9 mg/dL (8.5-10.1); Potassium 4.1 mmol/L (3.5-5.1)
[2021-04-24 05:37] LABS: Bilirubin, Total 1.6 mg/dL (0.2-1.0)
[2021-04-24 05:51] LABS: Basophils % (manual) 0 (0.0-2.0); Blast Cells 0; Myelocytes % 0; Promyelocytes % 0; Reactive Lymphocytes 0
[2021-04-24] MEDS: PIPERACILLIN-TAZOB 2.25GM 50 ML IV SCH ×5 (05:55→23:52)
[2021-04-24] MEDS ORDERED: SODIUM CHL 0.9% 1000 ML BAG XX ONE (07:00)
[2021-04-24] MEDS ORDERED: ALBUMIN 25% 100 ML IV PRN (08:15)
[2021-04-24 08:39] LABS: Band Neutrophils % (manual) 10; Eosinophils % (manual) 6 (0-7); Lymphocytes % (manual) 16 (10.0-50.0); Metamyelocytes % 1; Monocytes % (manual) 2 (0-12)
[2021-04-24] MEDS: NOREPINEPHRINE 8 MG/250ML KIT 250 ML IV SCH (08:58)
[2021-04-24] MEDS: FAMOTIDINE (10MG/ML) 2ML VL IV SCH (10:09)
[2021-04-24] MEDS: fentaNYL Drip 2500mCg/250mlNS 250 ML IV SCH (10:11)
[2021-04-24] MEDS: Nepro With Carb Steady 1 Liter Bottle GT SCH (15:00)
[2021-04-24] MEDS ORDERED: EPOETIN ALFA-EPBX 10,000 UNIT/1ML VIAL SC ONE (21:00)
[2021-04-25] VITALS (85 sets, daily range): BP systolic 104–151; BP diastolic 59–81
[2021-04-25] MEDS: FUROSEMIDE INJECTION 100 MG in SODIUM CHL 0.9% 100 ML IV SCH ×3 (00:32→08:26)
[2021-04-25] MEDS: PHENYLEPHRINE IV 250 ML IV SCH ×3 (02:00→18:40)
[2021-04-25] MEDS: fentaNYL Drip 2500mCg/250mlNS 250 ML IV SCH ×2 (03:39→22:24)
[2021-04-25] MEDS: PIPERACILLIN-TAZOB 2.25GM 50 ML IV SCH ×2 (04:34→12:28)
[2021-04-25 04:58] LABS: Albumin 2.6 g/dL (3.4-5.0); INR 1.13 (0.9-1.15); Magnesium 2.7 mg/dL (1.6-2.6); Partial Thromboplastin Time 24.5 sec (23.6-33.0); Potassium 3.7 mmol/L (3.5-5.1)
[2021-04-25 05:05] LABS: BUN/Creatinine Ratio 13.6; Bilirubin, Total 1.5 mg/dL (0.2-1.0); Phosphorus 5.9 mg/dL (2.5-4.90); Total Protein 5.5 g/dL (6.4-8.2)
[2021-04-25 05:12] LABS: Hematocrit 24.3 % (36.0-46.0); Hemoglobin 8.1 g/dL (12.2-16.2); Mean Corpuscular Hemoglobin 30.3 pg (28.0-32.0); Mean Corpuscular Hgb Conc. 33.3 g/dL (32.0-36.0); Red Blood Cells 2.67 10^6/uL (4.0-5.20); White Blood Cell 22.8 10^3/uL (4.4-10.8)
[2021-04-25 05:17] LABS: Basophils % (manual) 0 (0.0-2.0); Blast Cells 0; Eosinophils % (manual) 0 (0-7); Myelocytes % 0; Promyelocytes % 0; Reactive Lymphocytes 0
[2021-04-25 06:33] LABS: Band Neutrophils % (manual) 21; Lymphocytes % (manual) 9 (10.0-50.0); Metamyelocytes % 1; Monocytes % (manual) 7 (0-12)
[2021-04-25] MEDS: FAMOTIDINE (10MG/ML) 2ML VL IV SCH (10:42)
[2021-04-25] MEDS: BUMETANIDE INJECTION 25 MG in GIVE UN-DILUTED 0 ML IV SCH (11:15)
[2021-04-25] MEDS ORDERED: VANCOMYCIN PER PHARMACY 0 MG IV SCH (15:15)
[2021-04-25] MEDS ORDERED: VANCOMYCIN 1GM/250ML 250 ML IV ONE (16:00)
[2021-04-25] MEDS: NOREPINEPHRINE 8 MG/250ML KIT 250 ML IV SCH (16:30)
[2021-04-25] MEDS: MEROPENEM 500MG IVPB 50 ML IV SCH (21:36)
[2021-04-25] MEDS: MIDAZOLAM DRIP 50 mg/50mL 50 ML IV SCH (21:36)
[2021-04-26] VITALS (35 sets, daily range): BP systolic 104–127; BP diastolic 62–78
[2021-04-26] MEDS: PHENYLEPHRINE IV 250 ML IV SCH ×2 (03:00→11:20)
[2021-04-26 03:54] LABS: Mean Corpuscular Hemoglobin 30.2 pg (28.0-32.0)
[2021-04-26 03:56] LABS: Hematocrit 24.7 % (36.0-46.0); Hemoglobin 8.1 g/dL (12.2-16.2); Mean Corpuscular Hgb Conc. 32.9 g/dL (32.0-36.0); Mean Corpuscular Volume 91.8 fL (80.0-100.0); Red Blood Cells 2.69 10^6/uL (4.0-5.20); Red Cell Distribution Width 17.7 % (11.8-14.3); White Blood Cell 24.6 10^3/uL (4.4-10.8)
[2021-04-26 04:00] LABS: Basophils % (manual) 0 (0.0-2.0); Blast Cells 0; Promyelocytes % 0; Reactive Lymphocytes 0
[2021-04-26 04:13] LABS: Calcium 8.1 mg/dL (8.5-10.1); Potassium 3.6 mmol/L (3.5-5.1)
[2021-04-26 04:15] LABS: BUN/Creatinine Ratio 13.1
[2021-04-26 04:17] LABS: Bilirubin, Total 1.5 mg/dL (0.2-1.0); Total Protein 5.2 g/dL (6.4-8.2)
[2021-04-26 04:20] LABS: Band Neutrophils % (manual) 28; Eosinophils % (manual) 2 (0-7); Lymphocytes % (manual) 5 (10.0-50.0); Metamyelocytes % 3; Monocytes % (manual) 13 (0-12); Myelocytes % 4
[2021-04-26] MEDS: FAMOTIDINE (10MG/ML) 2ML VL IV SCH (10:01)
[2021-04-26] MEDS: MEROPENEM 500MG IVPB 50 ML IV SCH ×2 (10:02→21:10)
[2021-04-26] MEDS: BUMETANIDE INJECTION 25 MG in GIVE UN-DILUTED 0 ML IV SCH (10:04)
[2021-04-26] MEDS: fentaNYL Drip 2500mCg/250mlNS 250 ML IV SCH (12:00)
[2021-04-26] MEDS: MIDAZOLAM DRIP 50 mg/50mL 50 ML IV SCH ×2 (15:12→20:31)
[2021-04-26] MEDS ORDERED: VANCOMYCIN 500 MG in D5W 5% 100 ML IV ONE (16:00)
[2021-04-26] MEDS: NOREPINEPHRINE 8 MG/250ML KIT 250 ML IV SCH (16:30)
[2021-04-27] VITALS (42 sets, daily range): BP systolic 94–124; BP diastolic 57–80
[2021-04-27] MEDS: MIDAZOLAM DRIP 50 mg/50mL 50 ML IV SCH ×6 (00:19→23:41)
[2021-04-27 06:15] LABS: Potassium 3.7 mmol/L (3.5-5.1)
[2021-04-27 06:17] LABS: BUN/Creatinine Ratio 14.2; Calcium 8.1 mg/dL (8.5-10.1)
[2021-04-27 06:25] LABS: Hematocrit 25.6 % (36.0-46.0); Hemoglobin 8.5 g/dL (12.2-16.2); Mean Corpuscular Hemoglobin 30.8 pg (28.0-32.0); Mean Corpuscular Hgb Conc. 33.3 g/dL (32.0-36.0); Mean Corpuscular Volume 92.3 fL (80.0-100.0); Red Blood Cells 2.77 10^6/uL (4.0-5.20); Red Cell Distribution Width 18.4 % (11.8-14.3); White Blood Cell 24.9 10^3/uL (4.4-10.8)
[2021-04-27 06:34] LABS: Basophils % (manual) 0 (0.0-2.0); Blast Cells 0; Promyelocytes % 0; Reactive Lymphocytes 0
[2021-04-27] MEDS ORDERED: SODIUM CHL 0.9% 1000 ML BAG XX ONE (07:00)
[2021-04-27 07:47] LABS: Band Neutrophils % (manual) 9; Eosinophils % (manual) 1 (0-7); Lymphocytes % (manual) 10 (10.0-50.0); Metamyelocytes % 2; Monocytes % (manual) 8 (0-12); Myelocytes % 3
[2021-04-27] MEDS: BUMETANIDE INJECTION 25 MG in GIVE UN-DILUTED 0 ML IV SCH (10:05)
[2021-04-27] MEDS: MEROPENEM 500MG IVPB 50 ML IV SCH ×2 (10:29→22:04)
[2021-04-27] MEDS: FAMOTIDINE (10MG/ML) 2ML VL IV SCH (10:29)
[2021-04-27] MEDS: fentaNYL Drip 2500mCg/250mlNS 250 ML IV SCH (13:30)
[2021-04-27] MEDS ORDERED: FLUCONAZOLE 200MG/100ML 100 ML IV ONE (15:00)
[2021-04-27] MEDS ORDERED: ALBUMIN 25% 100 ML IV ONE ×2 (15:30→15:45)
[2021-04-27] MEDS ORDERED: ALBUMIN 25% 100 ML IV SCH ×2 (15:45→16:30)
[2021-04-27] MEDS: NOREPINEPHRINE 8 MG/250ML KIT 250 ML IV SCH (16:30)
[2021-04-27 17:25] LABS: INR 1.08 (0.9-1.15); Partial Thromboplastin Time 23.2 sec (23.6-33.0)
[2021-04-27] MEDS ORDERED: EPOETIN ALFA-EPBX 10,000 UNIT/1ML VIAL SC ONE (21:00)
[2021-04-28] VITALS (66 sets, daily range): BP systolic 87–125; BP diastolic 50–81
[2021-04-28] MEDS: fentaNYL Drip 2500mCg/250mlNS 250 ML IV SCH ×2 (02:30→13:28)
[2021-04-28] MEDS: MIDAZOLAM DRIP 50 mg/50mL 50 ML IV SCH ×2 (03:30→14:10)
[2021-04-28 04:02] LABS: Hematocrit 23.4 % (36.0-46.0); Hemoglobin 7.8 g/dL (12.2-16.2); Mean Corpuscular Hemoglobin 30.6 pg (28.0-32.0); Mean Corpuscular Hgb Conc. 33.2 g/dL (32.0-36.0); Mean Corpuscular Volume 92.3 fL (80.0-100.0); Red Blood Cells 2.53 10^6/uL (4.0-5.20); Red Cell Distribution Width 18.7 % (11.8-14.3); White Blood Cell 27.2 10^3/uL (4.4-10.8)
[2021-04-28 04:15] LABS: Basophils % (manual) 0 (0.0-2.0); Blast Cells 0; Eosinophils % (manual) 0 (0-7); Promyelocytes % 0; Reactive Lymphocytes 0
[2021-04-28 04:22] LABS: BUN/Creatinine Ratio 13.7
[2021-04-28 08:49] LABS: Band Neutrophils % (manual) 12; Lymphocytes % (manual) 4 (10.0-50.0); Metamyelocytes % 1; Monocytes % (manual) 5 (0-12); Myelocytes % 1
[2021-04-28] MEDS: FLUCONAZOLE 200MG/100ML 100 ML IV SCH (10:29)
[2021-04-28] MEDS: FAMOTIDINE (10MG/ML) 2ML VL IV SCH (10:35)
[2021-04-28] MEDS: BUMETANIDE INJECTION 25 MG in GIVE UN-DILUTED 0 ML IV SCH (12:17)
[2021-04-28] MEDS: MEROPENEM 500MG IVPB 50 ML IV SCH ×2 (12:17→23:12)
[2021-04-28] MEDS ORDERED: ALBUMIN 25% 100 ML IV ONE (12:45)
[2021-04-28] MEDS ORDERED: metroNIDAZOLE 500 MG TAB PO ONE (13:30)
[2021-04-28] MEDS ORDERED: NYSTATIN TOPICAL POWDER 15GM TOP ONE (13:45)
[2021-04-28] MEDS: NOREPINEPHRINE 8 MG/250ML KIT 250 ML IV SCH (16:55)
[2021-04-28] MEDS: PROPOFOL 100 ML IV SCH (20:00)
[2021-04-28] MEDS: metroNIDAZOLE 500 MG TAB PO SCH (23:12)
[2021-04-28] MEDS: NYSTATIN TOPICAL POWDER 15GM TOP SCH (23:14)
[2021-04-29] VITALS (98 sets, daily range): BP systolic 98–136; BP diastolic 60–88
[2021-04-29] MEDS: metroNIDAZOLE 500 MG TAB PO SCH ×3 (06:00→21:42)
[2021-04-29] MEDS ORDERED: SODIUM CHL 0.9% 1000 ML BAG XX ONE (07:00)
[2021-04-29 07:09] LABS: Mean Corpuscular Hemoglobin 31.5 pg (28.0-32.0); Red Blood Cells 2.46 10^6/uL (4.0-5.20); Red Cell Distribution Width 19.5 % (11.8-14.3); White Blood Cell 23.1 10^3/uL (4.4-10.8)
[2021-04-29 07:13] LABS: Hematocrit 22.9 % (36.0-46.0); Hemoglobin 7.8 g/dL (12.2-16.2); Mean Corpuscular Hgb Conc. 33.8 g/dL (32.0-36.0); Mean Corpuscular Volume 92.9 fL (80.0-100.0)
[2021-04-29 07:22] LABS: Basophils % (manual) 0 (0.0-2.0); Blast Cells 0; Promyelocytes % 0; Reactive Lymphocytes 0
[2021-04-29 07:27] LABS: BUN/Creatinine Ratio 11.2; Calcium 8.2 mg/dL (8.5-10.1); Potassium 3.8 mmol/L (3.5-5.1)
[2021-04-29 07:29] LABS: % Iron Saturation 35.4 % (15-50)
[2021-04-29 08:13] LABS: Eosinophils % (manual) 2 (0-7); Lymphocytes % (manual) 6 (10.0-50.0); Myelocytes % 1
[2021-04-29 08:14] LABS: Band Neutrophils % (manual) 9; Metamyelocytes % 1; Monocytes % (manual) 6 (0-12)
[2021-04-29] MEDS ORDERED: LIDOCAINE 1% (LOCAL ANESTH.) PF 5ml SDV ID ONE (09:00)
[2021-04-29] MEDS: FAMOTIDINE (10MG/ML) 2ML VL IV SCH (09:49)
[2021-04-29] MEDS: NYSTATIN TOPICAL POWDER 15GM TOP SCH ×2 (09:49→22:00)
[2021-04-29] MEDS: SODIUM CHLOR 0.9% PF (SALINE LOCK) 10ML VIAL/SYR IV SCH ×2 (09:49→22:00)
[2021-04-29] MEDS: FLUCONAZOLE 200MG/100ML 100 ML IV SCH (09:49)
[2021-04-29] MEDS: MEROPENEM 500MG IVPB 50 ML IV SCH ×2 (11:00→21:42)
[2021-04-29] MEDS: BUMETANIDE INJECTION 25 MG in GIVE UN-DILUTED 0 ML IV SCH (11:15)
[2021-04-29] MEDS: NOREPINEPHRINE 8 MG/250ML KIT 250 ML IV SCH (16:30)
[2021-04-29] MEDS: MIDAZOLAM DRIP 50 mg/50mL 50 ML IV SCH (16:30)
[2021-04-29] MEDS: PROPOFOL 100 ML IV SCH (20:00)
[2021-04-30] VITALS (56 sets, daily range): BP systolic 113–154; BP diastolic 69–92
[2021-04-30] MEDS: BUMETANIDE INJECTION 25 MG in GIVE UN-DILUTED 0 ML IV SCH (01:30)
[2021-04-30 04:01] LABS: Hematocrit 25.8 % (36.0-46.0); Hemoglobin 8.5 g/dL (12.2-16.2); Mean Corpuscular Hemoglobin 30.4 pg (28.0-32.0); Mean Corpuscular Hgb Conc. 32.8 g/dL (32.0-36.0); Mean Corpuscular Volume 92.7 fL (80.0-100.0); Red Blood Cells 2.78 10^6/uL (4.0-5.20); Red Cell Distribution Width 19.3 % (11.8-14.3); White Blood Cell 20.5 10^3/uL (4.4-10.8)
[2021-04-30 04:10] LABS: Basophils % (manual) 0 (0.0-2.0); Blast Cells 0; Metamyelocytes % 0; Promyelocytes % 0; Reactive Lymphocytes 0
[2021-04-30 04:19] LABS: BUN/Creatinine Ratio 11.6; Calcium 8.3 mg/dL (8.5-10.1); Potassium 4.1 mmol/L (3.5-5.1)
[2021-04-30] MEDS: metroNIDAZOLE 500 MG TAB PO SCH ×3 (05:49→22:03)
[2021-04-30 06:15] LABS: Band Neutrophils % (manual) 7; Eosinophils % (manual) 1 (0-7); Lymphocytes % (manual) 7 (10.0-50.0); Monocytes % (manual) 5 (0-12); Myelocytes % 2
[2021-04-30] MEDS: fentaNYL Drip 2500mCg/250mlNS 250 ML IV SCH (09:07)
[2021-04-30] MEDS: SODIUM CHLOR 0.9% PF (SALINE LOCK) 10ML VIAL/SYR IV SCH ×2 (09:07→22:02)
[2021-04-30] MEDS: NYSTATIN TOPICAL POWDER 15GM TOP SCH ×2 (09:08→22:03)
[2021-04-30] MEDS: FAMOTIDINE (10MG/ML) 2ML VL IV SCH (10:33)
[2021-04-30] MEDS: FLUCONAZOLE 200MG/100ML 100 ML IV SCH (10:33)
[2021-04-30] MEDS: FLORASTOR (S. BOULARDII) 250 MG CAP PO SCH (10:33)
[2021-04-30] MEDS: MEROPENEM 500MG IVPB 50 ML IV SCH ×2 (11:26→22:02)
[2021-04-30] MEDS: MIDAZOLAM DRIP 50 mg/50mL 50 ML IV SCH (13:24)
[2021-04-30] MEDS: NOREPINEPHRINE 8 MG/250ML KIT 250 ML IV SCH (13:24)
[2021-04-30] MEDS: PROPOFOL 100 ML IV SCH (20:00)
[2021-05-01] VITALS (69 sets, daily range): BP systolic 99–153; BP diastolic 69–104
[2021-05-01 05:05] LABS: Hematocrit 27.2 % (36.0-46.0); Hemoglobin 8.9 g/dL (12.2-16.2); Mean Corpuscular Hemoglobin 30.1 pg (28.0-32.0); Mean Corpuscular Hgb Conc. 32.6 g/dL (32.0-36.0); Mean Corpuscular Volume 92.5 fL (80.0-100.0); Red Blood Cells 2.94 10^6/uL (4.0-5.20); Red Cell Distribution Width 19.7 % (11.8-14.3)
[2021-05-01 05:21] LABS: Basophils % (manual) 0 (0.0-2.0); Blast Cells 0; Promyelocytes % 0; Reactive Lymphocytes 0
[2021-05-01 05:22] LABS: INR 1.19 (0.9-1.15); Partial Thromboplastin Time 28.2 sec (23.6-33.0)
[2021-05-01] MEDS: metroNIDAZOLE 500 MG TAB PO SCH ×3 (06:13→21:24)
[2021-05-01 06:20] LABS: Magnesium 2.7 mg/dL (1.6-2.6)
[2021-05-01 07:14] LABS: Potassium 4.3 mmol/L (3.5-5.1)
[2021-05-01 07:19] LABS: BUN/Creatinine Ratio 11.6; Calcium 8.2 mg/dL (8.5-10.1)
[2021-05-01 08:33] LABS: Band Neutrophils % (manual) 10; Eosinophils % (manual) 2 (0-7); Lymphocytes % (manual) 5 (10.0-50.0); Metamyelocytes % 5; Monocytes % (manual) 11 (0-12); Myelocytes % 1
[2021-05-01] MEDS ORDERED: SODIUM CHL 0.9% 1000 ML BAG XX ONE (08:45)
[2021-05-01] MEDS: fentaNYL Drip 2500mCg/250mlNS 250 ML IV SCH (09:45)
[2021-05-01] MEDS: SODIUM CHLOR 0.9% PF (SALINE LOCK) 10ML VIAL/SYR IV SCH ×2 (10:00→21:24)
[2021-05-01] MEDS: NYSTATIN TOPICAL POWDER 15GM TOP SCH ×2 (10:00→21:25)
[2021-05-01] MEDS: FLORASTOR (S. BOULARDII) 250 MG CAP PO SCH (10:00)
[2021-05-01] MEDS: FLUCONAZOLE 200MG/100ML 100 ML IV SCH (12:00)
[2021-05-01] MEDS: MEROPENEM 500MG IVPB 50 ML IV SCH ×2 (12:00→21:24)
[2021-05-01] MEDS: FAMOTIDINE (10MG/ML) 2ML VL IV SCH (12:00)
[2021-05-01] MEDS ORDERED: EPOETIN ALFA-EPBX 10,000 UNIT/1ML VIAL SC ONE (21:00)
[2021-05-02] VITALS (38 sets, daily range): BP systolic 112–155; BP diastolic 78–101
[2021-05-02 05:05] LABS: Hematocrit 25.7 % (36.0-46.0); Hemoglobin 8.5 g/dL (12.2-16.2); Mean Corpuscular Hemoglobin 30.8 pg (28.0-32.0); Mean Corpuscular Hgb Conc. 33.2 g/dL (32.0-36.0); Mean Corpuscular Volume 92.7 fL (80.0-100.0); Red Blood Cells 2.78 10^6/uL (4.0-5.20); Red Cell Distribution Width 19.7 % (11.8-14.3); White Blood Cell 20.6 10^3/uL (4.4-10.8)
[2021-05-02 05:11] LABS: Basophils % (manual) 0 (0.0-2.0); Blast Cells 0; Eosinophils % (manual) 0 (0-7); Metamyelocytes % 0; Promyelocytes % 0; Reactive Lymphocytes 0
[2021-05-02 05:30] LABS: Albumin 2.4 g/dL (3.4-5.0); Calcium 8.2 mg/dL (8.5-10.1); Potassium 4.1 mmol/L (3.5-5.1)
[2021-05-02 05:34] LABS: BUN/Creatinine Ratio 11.5; Bilirubin, Total 0.8 mg/dL (0.2-1.0); Total Protein 6.6 g/dL (6.4-8.2)
[2021-05-02] MEDS: metroNIDAZOLE 500 MG TAB PO SCH ×2 (06:12→13:29)
[2021-05-02 06:49] LABS: Band Neutrophils % (manual) 15; Lymphocytes % (manual) 6 (10.0-50.0); Monocytes % (manual) 6 (0-12); Myelocytes % 6
[2021-05-02] MEDS: fentaNYL Drip 2500mCg/250mlNS 250 ML IV SCH (09:45)
[2021-05-02] MEDS ORDERED: BUMETANIDE 2.5mg/10ml (0.25 mg/ml) INJ IV SCH (10:00)
[2021-05-02] MEDS: PROPOFOL 100 ML IV SCH (10:10)
[2021-05-02] MEDS: NOREPINEPHRINE 8 MG/250ML KIT 250 ML IV SCH (10:10)
[2021-05-02] MEDS: MIDAZOLAM DRIP 50 mg/50mL 50 ML IV SCH (10:10)
[2021-05-02] MEDS: FLORASTOR (S. BOULARDII) 250 MG CAP PO SCH (10:11)
[2021-05-02] MEDS: FAMOTIDINE (10MG/ML) 2ML VL IV SCH (10:11)
[2021-05-02] MEDS: MEROPENEM 500MG IVPB 50 ML IV SCH ×2 (10:11→21:57)
[2021-05-02] MEDS: FLUCONAZOLE 200MG/100ML 100 ML IV SCH (10:11)
[2021-05-02] MEDS: SODIUM CHLOR 0.9% PF (SALINE LOCK) 10ML VIAL/SYR IV SCH ×2 (10:11→21:57)
[2021-05-02] MEDS: NYSTATIN TOPICAL POWDER 15GM TOP SCH ×2 (10:12→21:57)
[2021-05-02] MEDS: Nepro With Carb Steady 1 Liter Bottle GT SCH (14:12)
[2021-05-02] MEDS ORDERED: ENOXAPARIN SOD 30 MG/0.3 ML SYRINGE SC ONE (14:45)
[2021-05-02] MEDS: BUMETANIDE 2.5mg/10ml (0.25 mg/ml) INJ IV SCH (21:56)
[2021-05-03] VITALS (30 sets, daily range): BP systolic 108–152; BP diastolic 73–106
[2021-05-03 04:30] LABS: Hemoglobin 8.4 g/dL (12.2-16.2)
[2021-05-03 04:32] LABS: Hematocrit 24.8 % (36.0-46.0); Mean Corpuscular Hemoglobin 31.3 pg (28.0-32.0); Mean Corpuscular Hgb Conc. 33.9 g/dL (32.0-36.0); Mean Corpuscular Volume 92.2 fL (80.0-100.0); Red Blood Cells 2.68 10^6/uL (4.0-5.20); Red Cell Distribution Width 18.9 % (11.8-14.3)
[2021-05-03 04:42] LABS: Calcium 8.4 mg/dL (8.5-10.1); Potassium 4.3 mmol/L (3.5-5.1)
[2021-05-03 04:46] LABS: BUN/Creatinine Ratio 11.7
[2021-05-03 04:49] LABS: Basophils % (manual) 0 (0.0-2.0); Blast Cells 0; Promyelocytes % 0; Reactive Lymphocytes 0
[2021-05-03] MEDS ORDERED: SODIUM CHL 0.9% 1000 ML BAG XX ONE (07:00)
[2021-05-03 07:03] LABS: Band Neutrophils % (manual) 10
[2021-05-03 07:04] LABS: Eosinophils % (manual) 2 (0-7); Lymphocytes % (manual) 7 (10.0-50.0); Metamyelocytes % 3; Monocytes % (manual) 14 (0-12); Myelocytes % 2
[2021-05-03] MEDS: fentaNYL Drip 2500mCg/250mlNS 250 ML IV SCH (09:45)
[2021-05-03] MEDS: SODIUM CHLOR 0.9% PF (SALINE LOCK) 10ML VIAL/SYR IV SCH ×2 (10:57→21:25)
[2021-05-03] MEDS: MEROPENEM 500MG IVPB 50 ML IV SCH ×2 (10:57→21:25)
[2021-05-03] MEDS: FLUCONAZOLE 200MG/100ML 100 ML IV SCH (10:57)
[2021-05-03] MEDS: BUMETANIDE 2.5mg/10ml (0.25 mg/ml) INJ IV SCH ×2 (10:57→21:25)
[2021-05-03] MEDS: FLORASTOR (S. BOULARDII) 250 MG CAP PO SCH (10:58)
[2021-05-03] MEDS: ENOXAPARIN SOD 30 MG/0.3 ML SYRINGE SC SCH (10:58)
[2021-05-03] MEDS: NYSTATIN TOPICAL POWDER 15GM TOP SCH ×2 (10:58→21:25)
[2021-05-03] MEDS: NOREPINEPHRINE 8 MG/250ML KIT 250 ML IV SCH (16:00)
[2021-05-03] MEDS: MIDAZOLAM DRIP 50 mg/50mL 50 ML IV SCH (16:00)
[2021-05-03] MEDS: PROPOFOL 100 ML IV SCH (20:00)
[2021-05-03] MEDS ORDERED: EPOETIN ALFA-EPBX 10,000 UNIT/1ML VIAL SC ONE (21:00)
[2021-05-04] VITALS (37 sets, daily range): BP systolic 129–163; BP diastolic 73–95
[2021-05-04 04:01] LABS: BUN/Creatinine Ratio 10.1; Potassium 3.2 mmol/L (3.5-5.1)
[2021-05-04] MEDS: fentaNYL Drip 2500mCg/250mlNS 250 ML IV SCH (08:34)
[2021-05-04] MEDS: ENOXAPARIN SOD 30 MG/0.3 ML SYRINGE SC SCH (11:45)
[2021-05-04] MEDS: SODIUM CHLOR 0.9% PF (SALINE LOCK) 10ML VIAL/SYR IV SCH ×2 (11:45→21:44)
[2021-05-04] MEDS: FLUCONAZOLE 200MG/100ML 100 ML IV SCH (11:45)
[2021-05-04] MEDS: FAMOTIDINE (10MG/ML) 2ML VL IV SCH (11:45)
[2021-05-04] MEDS: NYSTATIN TOPICAL POWDER 15GM TOP SCH ×2 (11:45→21:43)
[2021-05-04] MEDS: FLORASTOR (S. BOULARDII) 250 MG CAP PO SCH (11:45)
[2021-05-04] MEDS: BUMETANIDE 2.5mg/10ml (0.25 mg/ml) INJ IV SCH ×3 (11:45→21:42)
[2021-05-04] MEDS: FREE WATER GT SCH ×2 (11:45→18:00)
[2021-05-04] MEDS: MEROPENEM 500MG IVPB 50 ML IV SCH ×2 (12:00→21:43)
[2021-05-04] MEDS: NOREPINEPHRINE 8 MG/250ML KIT 250 ML IV SCH (16:02)
[2021-05-04] MEDS: MIDAZOLAM DRIP 50 mg/50mL 50 ML IV SCH (16:02)
[2021-05-04] MEDS: PROPOFOL 100 ML IV SCH (20:00)
[2021-05-05] VITALS (31 sets, daily range): BP systolic 124–157; BP diastolic 74–99
[2021-05-05] MEDS: FREE WATER GT SCH ×4 (00:10→18:00)
[2021-05-05 04:17] LABS: Hemoglobin 7.7 g/dL (12.2-16.2); Mean Corpuscular Hemoglobin 31.2 pg (28.0-32.0); Mean Corpuscular Volume 92.5 fL (80.0-100.0); Red Blood Cells 2.47 10^6/uL (4.0-5.20)
[2021-05-05 04:21] LABS: Hematocrit 22.8 % (36.0-46.0); Mean Corpuscular Hgb Conc. 33.7 g/dL (32.0-36.0); Red Cell Distribution Width 18.3 % (11.8-14.3); White Blood Cell 14.2 10^3/uL (4.4-10.8)
[2021-05-05 04:28] LABS: Basophils % (manual) 0 (0.0-2.0); Blast Cells 0; Eosinophils % (manual) 0 (0-7); Metamyelocytes % 0; Promyelocytes % 0; Reactive Lymphocytes 0
[2021-05-05 04:39] LABS: Calcium 8.2 mg/dL (8.5-10.1); Potassium 3.1 mmol/L (3.5-5.1)
[2021-05-05] MEDS: BUMETANIDE 2.5mg/10ml (0.25 mg/ml) INJ IV SCH ×3 (05:49→22:00)
[2021-05-05 06:50] LABS: Band Neutrophils % (manual) 10; Lymphocytes % (manual) 10 (10.0-50.0); Monocytes % (manual) 9 (0-12); Myelocytes % 2
[2021-05-05] MEDS ORDERED: SODIUM CHL 0.9% 1000 ML BAG XX ONE (08:00)
[2021-05-05] MEDS: fentaNYL Drip 2500mCg/250mlNS 250 ML IV SCH (09:45)
[2021-05-05] MEDS: ENOXAPARIN SOD 30 MG/0.3 ML SYRINGE SC SCH (09:51)
[2021-05-05] MEDS: NYSTATIN TOPICAL POWDER 15GM TOP SCH ×2 (09:51→22:00)
[2021-05-05] MEDS: FLUCONAZOLE 200MG/100ML 100 ML IV SCH (09:51)
[2021-05-05] MEDS: FLORASTOR (S. BOULARDII) 250 MG CAP PO SCH (09:52)
[2021-05-05] MEDS: SODIUM CHLOR 0.9% PF (SALINE LOCK) 10ML VIAL/SYR IV SCH ×2 (09:52→22:00)
[2021-05-05] MEDS: PROPOFOL 100 ML IV SCH (09:53)
[2021-05-05] MEDS: MEROPENEM 500MG IVPB 50 ML IV SCH ×2 (10:19→12:00)
[2021-05-05] MEDS ORDERED: POTASSIUM CHLORIDE 20 MEQ, LIDOCAINE 1% (LOCAL ANESTH.) 2 ML in SODIUM CHL 0.9% 100 ML IV ONE (15:15)
[2021-05-05] MEDS: NOREPINEPHRINE 8 MG/250ML KIT 250 ML IV SCH (16:30)
[2021-05-05] MEDS: MIDAZOLAM DRIP 50 mg/50mL 50 ML IV SCH (16:30)
[2021-05-05] MEDS ORDERED: EPOETIN ALFA-EPBX 10,000 UNIT/1ML VIAL SC ONE (21:00)
[2021-05-06] VITALS (48 sets, daily range): BP systolic 109–168; BP diastolic 70–103
[2021-05-06] MEDS: MEROPENEM 500MG IVPB 50 ML IV SCH ×2 (03:10→12:04)
[2021-05-06 04:48] LABS: Hematocrit 24.6 % (36.0-46.0); Hemoglobin 8.3 g/dL (12.2-16.2); Mean Corpuscular Hemoglobin 31.3 pg (28.0-32.0); Mean Corpuscular Hgb Conc. 33.8 g/dL (32.0-36.0); Mean Corpuscular Volume 92.5 fL (80.0-100.0); Red Blood Cells 2.66 10^6/uL (4.0-5.20); Red Cell Distribution Width 18.4 % (11.8-14.3); White Blood Cell 15.1 10^3/uL (4.4-10.8)
[2021-05-06 04:53] LABS: Band Neutrophils % (manual) 0; Basophils % (manual) 0 (0.0-2.0); Blast Cells 0; Eosinophils % (manual) 0 (0-7); Metamyelocytes % 0; Myelocytes % 0; Promyelocytes % 0; Reactive Lymphocytes 0
[2021-05-06 05:06] LABS: Calcium 8.2 mg/dL (8.5-10.1)
[2021-05-06] MEDS: FREE WATER GT SCH ×3 (06:00→12:00)
[2021-05-06] MEDS: BUMETANIDE 2.5mg/10ml (0.25 mg/ml) INJ IV SCH ×3 (06:39→21:29)
[2021-05-06] MEDS ORDERED: CATHFLO ACTIVASE (ALTEPLASE) 2 MG VIAL IV ONE (08:15)
[2021-05-06] MEDS ORDERED: SODIUM CHL 0.9% 1000 ML BAG XX ONE (08:15)
[2021-05-06] MEDS: fentaNYL Drip 2500mCg/250mlNS 250 ML IV SCH (08:48)
[2021-05-06 10:30] LABS: Lymphocytes % (manual) 5 (10.0-50.0); Monocytes % (manual) 9 (0-12)
[2021-05-06] MEDS: FAMOTIDINE (10MG/ML) 2ML VL IV SCH (10:39)
[2021-05-06] MEDS: ENOXAPARIN SOD 30 MG/0.3 ML SYRINGE SC SCH (10:39)
[2021-05-06] MEDS: NYSTATIN TOPICAL POWDER 15GM TOP SCH ×2 (10:39→21:31)
[2021-05-06] MEDS: FLORASTOR (S. BOULARDII) 250 MG CAP PO SCH (10:39)
[2021-05-06] MEDS: SODIUM CHLOR 0.9% PF (SALINE LOCK) 10ML VIAL/SYR IV SCH ×2 (10:40→21:30)
[2021-05-06] MEDS: FLUCONAZOLE 200MG/100ML 100 ML IV SCH (12:04)
[2021-05-06] MEDS: NOREPINEPHRINE 8 MG/250ML KIT 250 ML IV SCH (13:38)
[2021-05-06] MEDS: MIDAZOLAM DRIP 50 mg/50mL 50 ML IV SCH (14:16)
[2021-05-06] MEDS ORDERED: PIPERACILLIN-TAZOB 2.25GM 50 ML IV ONE (16:15)
[2021-05-06] MEDS: PROPOFOL 100 ML IV SCH (16:21)
[2021-05-06] MEDS: Nepro With Carb Steady 1 Liter Bottle GT SCH (18:31)
[2021-05-06] MEDS ORDERED: EPOETIN ALFA-EPBX 10,000 UNIT/1ML VIAL SC ONE (21:00)
[2021-05-06] MEDS: PIPERACILLIN-TAZOB 2.25GM 50 ML IV SCH (21:30)
[2021-05-07] VITALS (36 sets, daily range): BP systolic 101–156; BP diastolic 63–104
[2021-05-07 04:10] LABS: Basophils # (auto) 0.1 10 ^3/uL (0-0.2); Basophils % (auto) 1.1 % (0.0-2.0); Hematocrit 23.8 % (36.0-46.0); Mean Corpuscular Hemoglobin 31.1 pg (28.0-32.0); Nucleated Red Blood Cells % 0.1 %; White Blood Cell 12.9 10^3/uL (4.4-10.8)
[2021-05-07 04:14] LABS: Eosinophils # (auto) 0.2 10 ^3/uL (0-0.8); Eosinophils % (auto) 1.9 % (0.0-7.0); Lymphocytes % (auto) 8.1 % (10.0-50.0); Mean Corpuscular Hgb Conc. 33.5 g/dL (32.0-36.0); Mean Corpuscular Volume 92.8 fL (80.0-100.0); Monocytes # (auto) 1.6 10 ^3/uL (0-1.3); Monocytes % (auto) 12.7 % (0.0-12.0); Neutrophils # (auto) 9.8 10 ^3/uL (1.6-8.6); Neutrophils % (auto) 76.2 % (37.0-80.0); Red Blood Cells 2.56 10^6/uL (4.0-5.20); Red Cell Distribution Width 18.6 % (11.8-14.3)
[2021-05-07 04:32] LABS: Albumin 2.6 g/dL (3.4-5.0); BUN/Creatinine Ratio 7.4; Bilirubin, Total 1.2 mg/dL (0.2-1.0); Calcium 8.3 mg/dL (8.5-10.1); Total Protein 6.7 g/dL (6.4-8.2)
[2021-05-07 04:53] LABS: Potassium 2.9 mmol/L (3.5-5.1)
[2021-05-07] MEDS: PIPERACILLIN-TAZOB 2.25GM 50 ML IV SCH ×3 (05:50→22:17)
[2021-05-07] MEDS: BUMETANIDE 2.5mg/10ml (0.25 mg/ml) INJ IV SCH ×3 (05:50→22:18)
[2021-05-07] MEDS: POTASSIUM CHL 20MEQ/100ML 100 ML IV SCH ×2 (06:18→14:36)
[2021-05-07] MEDS: fentaNYL Drip 2500mCg/250mlNS 250 ML IV SCH (09:45)
[2021-05-07] MEDS: FLORASTOR (S. BOULARDII) 250 MG CAP PO SCH (10:00)
[2021-05-07] MEDS: NYSTATIN TOPICAL POWDER 15GM TOP SCH ×2 (10:00→22:18)
[2021-05-07] MEDS: SODIUM CHLOR 0.9% PF (SALINE LOCK) 10ML VIAL/SYR IV SCH ×2 (12:40→22:18)
[2021-05-07] MEDS: FLUCONAZOLE 200MG/100ML 100 ML IV SCH ×2 (12:40→14:36)
[2021-05-08] VITALS (28 sets, daily range): BP systolic 125–150; BP diastolic 69–103
[2021-05-08 04:18] LABS: Basophils # (auto) 0 10 ^3/uL (0-0.2); Eosinophils # (auto) 0.3 10 ^3/uL (0-0.8); Mean Corpuscular Hemoglobin 31.3 pg (28.0-32.0); Mean Corpuscular Hgb Conc. 33.7 g/dL (32.0-36.0)
[2021-05-08 04:29] LABS: Basophils % (auto) 0.2 % (0.0-2.0); Eosinophils % (auto) 2.1 % (0.0-7.0); Hematocrit 24.2 % (36.0-46.0); Hemoglobin 8.2 g/dL (12.2-16.2); Lymphocytes # (auto) 1.3 10 ^3/uL (0.4-5.4); Lymphocytes % (auto) 10.1 % (10.0-50.0); Mean Corpuscular Volume 92.9 fL (80.0-100.0); Monocytes # (auto) 1.6 10 ^3/uL (0-1.3); Monocytes % (auto) 12.9 % (0.0-12.0); Neutrophils # (auto) 9.4 10 ^3/uL (1.6-8.6); Neutrophils % (auto) 74.7 % (37.0-80.0); Nucleated Red Blood Cells % 0.1 %; Red Blood Cells 2.61 10^6/uL (4.0-5.20); Red Cell Distribution Width 17.9 % (11.8-14.3); White Blood Cell 12.5 10^3/uL (4.4-10.8)
[2021-05-08 04:45] LABS: Calcium 8.2 mg/dL (8.5-10.1)
[2021-05-08 04:48] LABS: BUN/Creatinine Ratio 7.4
[2021-05-08] MEDS: BUMETANIDE 2.5mg/10ml (0.25 mg/ml) INJ IV SCH ×3 (05:54→21:57)
[2021-05-08] MEDS: PIPERACILLIN-TAZOB 2.25GM 50 ML IV SCH ×3 (05:54→21:57)
[2021-05-08 09:23] LABS: Magnesium 2.1 mg/dL (1.6-2.6); Phosphorus 5.4 mg/dL (2.5-4.90)
[2021-05-08] MEDS: POTASSIUM CHL 20MEQ/100ML 100 ML IV SCH ×2 (09:29→11:11)
[2021-05-08] MEDS: FLORASTOR (S. BOULARDII) 250 MG CAP PO SCH (10:00)
[2021-05-08] MEDS: FAMOTIDINE (10MG/ML) 2ML VL IV SCH (10:13)
[2021-05-08] MEDS: SODIUM CHLOR 0.9% PF (SALINE LOCK) 10ML VIAL/SYR IV SCH ×2 (10:19→21:57)
[2021-05-08] MEDS: NYSTATIN TOPICAL POWDER 15GM TOP SCH ×2 (10:19→21:57)
[2021-05-09 05:00] VITALS: BP 142/78
[2021-05-09] MEDS: PIPERACILLIN-TAZOB 2.25GM 50 ML IV SCH ×2 (05:41→14:00)
[2021-05-09] MEDS: BUMETANIDE 2.5mg/10ml (0.25 mg/ml) INJ IV SCH (05:42)
[2021-05-09 07:19] LABS: Basophils # (auto) 0.2 10 ^3/uL (0-0.2); Basophils % (auto) 2.2 % (0.0-2.0); Eosinophils # (auto) 0.3 10 ^3/uL (0-0.8); Hematocrit 25.5 % (36.0-46.0); Hemoglobin 8.7 g/dL (12.2-16.2); Lymphocytes # (auto) 0.9 10 ^3/uL (0.4-5.4); Lymphocytes % (auto) 8.7 % (10.0-50.0); Mean Corpuscular Hemoglobin 31.6 pg (28.0-32.0); Mean Corpuscular Volume 92.8 fL (80.0-100.0); Monocytes # (auto) 1.2 10 ^3/uL (0-1.3); Monocytes % (auto) 12.5 % (0.0-12.0); Neutrophils # (auto) 7.3 10 ^3/uL (1.6-8.6); Neutrophils % (auto) 73.6 % (37.0-80.0); Nucleated Red Blood Cells % 0.3 %; Red Blood Cells 2.75 10^6/uL (4.0-5.20); Red Cell Distribution Width 18.1 % (11.8-14.3); White Blood Cell 9.9 10^3/uL (4.4-10.8)
[2021-05-09 07:34] LABS: Calcium 8.3 mg/dL (8.5-10.1)
[2021-05-09 07:36] LABS: BUN/Creatinine Ratio 8.6
[2021-05-09 08:13] LABS: Potassium 2.9 mmol/L (3.5-5.1)
[2021-05-09 09:00] VITALS: BP 139/77
[2021-05-09] MEDS: FLORASTOR (S. BOULARDII) 250 MG CAP PO SCH (10:00)
[2021-05-09] MEDS ORDERED: ENOXAPARIN SOD 30 MG/0.3 ML SYRINGE SC ONE (10:30)
[2021-05-09] MEDS ORDERED: SODIUM BICARBONATE 50ML VIAL 50 ML in SOD CHL 0.45% 1,000 ML IV SCH (10:45)
[2021-05-09] MEDS ORDERED: BUMETANIDE 2.5mg/10ml (0.25 mg/ml) INJ IV SCH ×2 (10:45→18:00)
[2021-05-09] MEDS ORDERED: POTASSIUM EFFERVESENT TAB 25 MEQ PO ONE (10:45)
[2021-05-09] MEDS ORDERED: POTASSIUM CHL 20MEQ/100ML 100 ML IV SCH (10:45)
[2021-05-09] MEDS: NYSTATIN TOPICAL POWDER 15GM TOP SCH (12:10)
[2021-05-09] MEDS: POTASSIUM CHL 20MEQ/100ML 100 ML IV SCH ×3 (12:11→16:07)
[2021-05-09] MEDS: SODIUM CHLOR 0.9% PF (SALINE LOCK) 10ML VIAL/SYR IV SCH (12:12)
[2021-05-09 13:00] VITALS: BP 132/80
[2021-05-09 17:00] VITALS: BP 155/83
[2021-05-09] MEDS: FLUCONAZOLE 200MG/100ML 100 ML IV SCH (18:04)
[2021-05-09] MEDS: SOD CHL 0.45% 1,000 ML IV SCH ×2 (19:11→20:45)
[2021-05-09 22:00] VITALS: BP 124/73
[2021-05-10] MEDS: SODIUM CHLOR 0.9% PF (SALINE LOCK) 10ML VIAL/SYR IV SCH ×3 (00:16→21:32)
[2021-05-10] MEDS: NYSTATIN TOPICAL POWDER 15GM TOP SCH ×3 (00:17→21:33)
[2021-05-10] MEDS: PIPERACILLIN-TAZOB 2.25GM 50 ML IV SCH ×4 (00:18→21:33)
[2021-05-10] MEDS: SOD CHL 0.45% 1,000 ML IV SCH ×2 (04:13→18:12)
[2021-05-10 05:00] VITALS: BP 131/82
[2021-05-10 07:30] LABS: Basophils # (auto) 0.2 10 ^3/uL (0-0.2); Eosinophils # (auto) 0.5 10 ^3/uL (0-0.8); Eosinophils % (auto) 4.9 % (0.0-7.0); Hematocrit 24.9 % (36.0-46.0); Hemoglobin 8.5 g/dL (12.2-16.2); Lymphocytes # (auto) 1.2 10 ^3/uL (0.4-5.4); Lymphocytes % (auto) 12.5 % (10.0-50.0); Mean Corpuscular Hemoglobin 31.8 pg (28.0-32.0); Mean Corpuscular Volume 93.5 fL (80.0-100.0); Monocytes # (auto) 1.2 10 ^3/uL (0-1.3); Monocytes % (auto) 12.7 % (0.0-12.0); Neutrophils # (auto) 6.4 10 ^3/uL (1.6-8.6); Neutrophils % (auto) 67.9 % (37.0-80.0); Nucleated Red Blood Cells % 0.5 %; Red Blood Cells 2.66 10^6/uL (4.0-5.20); Red Cell Distribution Width 18.1 % (11.8-14.3); White Blood Cell 9.4 10^3/uL (4.4-10.8)
[2021-05-10 07:44] LABS: Potassium 3.1 mmol/L (3.5-5.1)
[2021-05-10 07:48] LABS: BUN/Creatinine Ratio 10.8
[2021-05-10 09:00] VITALS: BP 140/90
[2021-05-10] MEDS ORDERED: POTASSIUM EFFERVESENT TAB 25 MEQ PO ONE (10:15)
[2021-05-10] MEDS: FLUCONAZOLE 200MG/100ML 100 ML IV SCH (10:16)
[2021-05-10] MEDS: FAMOTIDINE (10MG/ML) 2ML VL IV SCH (10:16)
[2021-05-10] MEDS: ENOXAPARIN SOD 30 MG/0.3 ML SYRINGE SC SCH (10:17)
[2021-05-10] MEDS: BUMETANIDE 2.5mg/10ml (0.25 mg/ml) INJ IV SCH (10:18)
[2021-05-10] MEDS: FLORASTOR (S. BOULARDII) 250 MG CAP PO SCH (11:52)
[2021-05-10] MEDS: POTASSIUM CHL 20MEQ/100ML 100 ML IV SCH ×2 (11:52→14:44)
[2021-05-10 13:00] VITALS: BP 141/90
[2021-05-10] MEDS: ACETAMINOPHEN 500 MG TAB PO PRN (14:58)
[2021-05-10 17:38] VITALS: BP 119/73
[2021-05-10 22:00] VITALS: BP 125/83
[2021-05-11] MEDS: SOD CHL 0.45% 1,000 ML IV SCH ×2 (02:55→21:55)
[2021-05-11] MEDS: PIPERACILLIN-TAZOB 2.25GM 50 ML IV SCH (05:11)
[2021-05-11 05:27] VITALS: BP 141/95
[2021-05-11 08:06] LABS: Immunoglobulin G, Serum 1388 mg/dL (586-1602)
[2021-05-11 08:27] LABS: Basophils # (auto) 0.2 10 ^3/uL (0-0.2); Basophils % (auto) 2.2 % (0.0-2.0); Eosinophils # (auto) 0.3 10 ^3/uL (0-0.8); Eosinophils % (auto) 3.5 % (0.0-7.0); Hematocrit 26.5 % (36.0-46.0); Hemoglobin 8.6 g/dL (12.2-16.2); Lymphocytes # (auto) 0.9 10 ^3/uL (0.4-5.4); Lymphocytes % (auto) 9.2 % (10.0-50.0); Mean Corpuscular Hemoglobin 30.9 pg (28.0-32.0); Mean Corpuscular Hgb Conc. 32.6 g/dL (32.0-36.0); Mean Corpuscular Volume 94.8 fL (80.0-100.0); Monocytes % (auto) 10.6 % (0.0-12.0); Neutrophils # (auto) 7.3 10 ^3/uL (1.6-8.6); Neutrophils % (auto) 74.5 % (37.0-80.0); Nucleated Red Blood Cells % 0.4 %; White Blood Cell 9.8 10^3/uL (4.4-10.8)
[2021-05-11 08:32] LABS: Potassium 3.2 mmol/L (3.5-5.1)
[2021-05-11 08:38] LABS: BUN/Creatinine Ratio 11.8; Calcium 7.6 mg/dL (8.5-10.1)
[2021-05-11 09:00] VITALS: BP 137/89
[2021-05-11] MEDS: BUMETANIDE 2.5mg/10ml (0.25 mg/ml) INJ IV SCH (10:45)
[2021-05-11] MEDS: FLORASTOR (S. BOULARDII) 250 MG CAP PO SCH (10:45)
[2021-05-11] MEDS: SODIUM CHLOR 0.9% PF (SALINE LOCK) 10ML VIAL/SYR IV SCH ×2 (10:45→21:55)
[2021-05-11] MEDS: ENOXAPARIN SOD 30 MG/0.3 ML SYRINGE SC SCH (10:45)
[2021-05-11] MEDS: FLUCONAZOLE 200MG/100ML 100 ML IV SCH (10:45)
[2021-05-11] MEDS: NYSTATIN TOPICAL POWDER 15GM TOP SCH ×2 (10:46→21:56)
[2021-05-11 13:00] VITALS: BP 134/89
[2021-05-11] MEDS: POTASSIUM CHL 20MEQ/100ML 100 ML IV SCH ×2 (13:48→18:16)
[2021-05-11 18:00] VITALS: BP 154/92
[2021-05-11 21:56] VITALS: BP 124/83
[2021-05-12 04:46] VITALS: BP 10/87
[2021-05-12 07:34] LABS: BUN/Creatinine Ratio 11.2; Calcium 8.2 mg/dL (8.5-10.1); Potassium 3.1 mmol/L (3.5-5.1)
[2021-05-12 08:33] VITALS: BP 157/89
[2021-05-12 09:30] VITALS: BP 141/79
[2021-05-12] MEDS: cefTRIAXone 1GM/50ML D5W 50 ML IV SCH (09:48)
[2021-05-12] MEDS: BUMETANIDE 2.5mg/10ml (0.25 mg/ml) INJ IV SCH (09:50)
[2021-05-12] MEDS: FLUCONAZOLE 200MG/100ML 100 ML IV SCH (09:50)
[2021-05-12] MEDS: FAMOTIDINE (10MG/ML) 2ML VL IV SCH (09:52)
[2021-05-12] MEDS: SODIUM CHLOR 0.9% PF (SALINE LOCK) 10ML VIAL/SYR IV SCH ×2 (09:52→21:02)
[2021-05-12] MEDS: ENOXAPARIN SOD 30 MG/0.3 ML SYRINGE SC SCH (09:53)
[2021-05-12] MEDS: FLORASTOR (S. BOULARDII) 250 MG CAP PO SCH (09:53)
[2021-05-12] MEDS: NYSTATIN TOPICAL POWDER 15GM TOP SCH ×3 (09:54→22:51)
[2021-05-12] MEDS ORDERED: POTASSIUM CHL 20 Meq TABLET PO ONE ×2 (10:30→11:45)
[2021-05-12 14:08] VITALS: BP 115/96
[2021-05-12 17:00] VITALS: BP 143/77
[2021-05-12] MEDS: APIXABAN 2.5 MG TAB PO SCH (21:03)
[2021-05-12 21:59] VITALS: BP 135/76
[2021-05-13] MEDS: ACETAMINOPHEN 500 MG TAB PO PRN (02:51)
[2021-05-13 04:53] VITALS: BP 127/87
[2021-05-13 06:36] LABS: Potassium 3.2 mmol/L (3.5-5.1)
[2021-05-13 06:49] LABS: BUN/Creatinine Ratio 11.7; Calcium 8.2 mg/dL (8.5-10.1)
[2021-05-13 08:00] VITALS: BP 146/98
[2021-05-13] MEDS: cefTRIAXone 1GM/50ML D5W 50 ML IV SCH (09:00)
[2021-05-13] MEDS: SODIUM CHLOR 0.9% PF (SALINE LOCK) 10ML VIAL/SYR IV SCH ×2 (10:12→22:09)
[2021-05-13] MEDS: APIXABAN 2.5 MG TAB PO SCH ×2 (10:12→22:09)
[2021-05-13] MEDS: FLORASTOR (S. BOULARDII) 250 MG CAP PO SCH (10:12)
[2021-05-13] MEDS: NYSTATIN TOPICAL POWDER 15GM TOP SCH ×2 (10:13→22:10)
[2021-05-13] MEDS: FAMOTIDINE 20 MG TAB PO SCH (10:13)
[2021-05-13 12:00] VITALS: BP 148/96
[2021-05-13] MEDS: POTASSIUM CHL 20MEQ/100ML 100 ML IV SCH ×2 (14:50→16:02)
[2021-05-13 16:59] VITALS: BP 149/90
[2021-05-14 05:00] VITALS: BP 144/89
[2021-05-14 05:43] LABS: Basophils # (auto) 0.1 10 ^3/uL (0-0.2); Basophils % (auto) 1.3 % (0.0-2.0); Eosinophils # (auto) 0.6 10 ^3/uL (0-0.8); Eosinophils % (auto) 6.1 % (0.0-7.0); Hemoglobin 9.1 g/dL (12.2-16.2); Lymphocytes # (auto) 1.2 10 ^3/uL (0.4-5.4); Lymphocytes % (auto) 12.4 % (10.0-50.0); Mean Corpuscular Hemoglobin 31.3 pg (28.0-32.0); Mean Corpuscular Hgb Conc. 33.8 g/dL (32.0-36.0); Mean Corpuscular Volume 92.4 fL (80.0-100.0); Monocytes # (auto) 1.3 10 ^3/uL (0-1.3); Monocytes % (auto) 13.2 % (0.0-12.0); Neutrophils # (auto) 6.6 10 ^3/uL (1.6-8.6); Red Blood Cells 2.92 10^6/uL (4.0-5.20); Red Cell Distribution Width 17.9 % (11.8-14.3); White Blood Cell 9.9 10^3/uL (4.4-10.8)
[2021-05-14 06:02] LABS: BUN/Creatinine Ratio 9.8; Magnesium 1.9 mg/dL (1.6-2.6); Potassium 3.1 mmol/L (3.5-5.1)
[2021-05-14 09:00] VITALS: BP 145/92
[2021-05-14] MEDS: SODIUM CHLOR 0.9% PF (SALINE LOCK) 10ML VIAL/SYR IV SCH ×2 (09:03→21:46)
[2021-05-14] MEDS: FAMOTIDINE 20 MG TAB PO SCH (10:38)
[2021-05-14] MEDS: cefTRIAXone 1GM/50ML D5W 50 ML IV SCH (10:39)
[2021-05-14] MEDS: FLORASTOR (S. BOULARDII) 250 MG CAP PO SCH (10:39)
[2021-05-14] MEDS: APIXABAN 2.5 MG TAB PO SCH ×2 (10:39→21:51)
[2021-05-14] MEDS: POTASSIUM CHL 20MEQ/100ML 100 ML IV SCH ×3 (10:39→16:01)
[2021-05-14] MEDS: NYSTATIN TOPICAL POWDER 15GM TOP SCH ×2 (11:44→21:52)
[2021-05-14 17:00] VITALS: BP 133/71
[2021-05-14 22:00] VITALS: BP 144/89
[2021-05-15 05:00] VITALS: BP 151/76
[2021-05-15 06:57] LABS: Basophils # (auto) 0.1 10 ^3/uL (0-0.2); Basophils % (auto) 1.2 % (0.0-2.0); Eosinophils # (auto) 0.5 10 ^3/uL (0-0.8); Eosinophils % (auto) 5.8 % (0.0-7.0); Hemoglobin 9.1 g/dL (12.2-16.2); Lymphocytes # (auto) 1.3 10 ^3/uL (0.4-5.4); Lymphocytes % (auto) 15.2 % (10.0-50.0); Mean Corpuscular Hemoglobin 31.6 pg (28.0-32.0); Mean Corpuscular Hgb Conc. 33.8 g/dL (32.0-36.0); Mean Corpuscular Volume 93.5 fL (80.0-100.0); Monocytes # (auto) 1.1 10 ^3/uL (0-1.3); Monocytes % (auto) 12.7 % (0.0-12.0); Neutrophils # (auto) 5.8 10 ^3/uL (1.6-8.6); Neutrophils % (auto) 65.1 % (37.0-80.0); Nucleated Red Blood Cells % 0.2 %; Red Blood Cells 2.89 10^6/uL (4.0-5.20); Red Cell Distribution Width 18.1 % (11.8-14.3); White Blood Cell 8.9 10^3/uL (4.4-10.8)
[2021-05-15 06:58] LABS: INR 1.19 (0.9-1.15); Partial Thromboplastin Time 25.7 sec (23.6-33.0)
[2021-05-15 07:16] LABS: Albumin 2.6 g/dL (3.4-5.0); Calcium 8.3 mg/dL (8.5-10.1); Magnesium 1.8 mg/dL (1.6-2.6); Potassium 3.5 mmol/L (3.5-5.1)
[2021-05-15 07:21] LABS: BUN/Creatinine Ratio 8.5; Bilirubin, Total 0.7 mg/dL (0.2-1.0); Phosphorus 3.8 mg/dL (2.5-4.90); Total Protein 6.8 g/dL (6.4-8.2)
[2021-05-15 09:00] VITALS: BP 147/97
[2021-05-15] MEDS: FLORASTOR (S. BOULARDII) 250 MG CAP PO SCH (09:46)
[2021-05-15] MEDS: FAMOTIDINE 20 MG TAB PO SCH (09:46)
[2021-05-15] MEDS: cefTRIAXone 1GM/50ML D5W 50 ML IV SCH (09:46)
[2021-05-15] MEDS: APIXABAN 2.5 MG TAB PO SCH ×2 (09:46→21:34)
[2021-05-15] MEDS: SODIUM CHLOR 0.9% PF (SALINE LOCK) 10ML VIAL/SYR IV SCH ×2 (09:47→21:33)
[2021-05-15] MEDS: NYSTATIN TOPICAL POWDER 15GM TOP SCH ×2 (09:54→21:33)
[2021-05-15 13:00] VITALS: BP 146/91
[2021-05-15 17:00] VITALS: BP 154/92
[2021-05-15 22:00] VITALS: BP 143/85
[2021-05-16] MEDS: ACETAMINOPHEN 500 MG TAB PO PRN (02:15)
[2021-05-16 05:00] VITALS: BP 148/90
[2021-05-16 08:30] LABS: Basophils # (auto) 0.1 10 ^3/uL (0-0.2); Basophils % (auto) 1.2 % (0.0-2.0); Eosinophils # (auto) 0.4 10 ^3/uL (0-0.8); Eosinophils % (auto) 3.9 % (0.0-7.0); Hematocrit 29.4 % (36.0-46.0); Hemoglobin 9.8 g/dL (12.2-16.2); Lymphocytes # (auto) 1.6 10 ^3/uL (0.4-5.4); Lymphocytes % (auto) 16.6 % (10.0-50.0); Mean Corpuscular Hgb Conc. 33.4 g/dL (32.0-36.0); Mean Corpuscular Volume 92.9 fL (80.0-100.0); Monocytes # (auto) 0.9 10 ^3/uL (0-1.3); Monocytes % (auto) 9.5 % (0.0-12.0); Neutrophils # (auto) 6.5 10 ^3/uL (1.6-8.6); Neutrophils % (auto) 68.8 % (37.0-80.0); Nucleated Red Blood Cells % 0.1 %; Red Blood Cells 3.17 10^6/uL (4.0-5.20); Red Cell Distribution Width 18.1 % (11.8-14.3); White Blood Cell 9.4 10^3/uL (4.4-10.8)
[2021-05-16 08:37] LABS: INR 1.16 (0.9-1.15); Partial Thromboplastin Time 24.6 sec (23.6-33.0)
[2021-05-16 08:42] LABS: Potassium 3.4 mmol/L (3.5-5.1)
[2021-05-16 08:50] LABS: Albumin 2.9 g/dL (3.4-5.0); Bilirubin, Total 0.9 mg/dL (0.2-1.0); Calcium 8.7 mg/dL (8.5-10.1); Magnesium 2.1 mg/dL (1.6-2.6); Total Protein 7.6 g/dL (6.4-8.2)
[2021-05-16 09:00] VITALS: BP 160/97
[2021-05-16] MEDS: SODIUM CHLOR 0.9% PF (SALINE LOCK) 10ML VIAL/SYR IV SCH ×2 (10:27→22:19)
[2021-05-16] MEDS: cefTRIAXone 1GM/50ML D5W 50 ML IV SCH (10:27)
[2021-05-16] MEDS: FAMOTIDINE 20 MG TAB PO SCH (10:28)
[2021-05-16] MEDS: APIXABAN 2.5 MG TAB PO SCH ×2 (10:28→22:20)
[2021-05-16] MEDS: FLORASTOR (S. BOULARDII) 250 MG CAP PO SCH (10:28)
[2021-05-16] MEDS: NYSTATIN TOPICAL POWDER 15GM TOP SCH ×2 (10:28→22:00)
[2021-05-16] MEDS ORDERED: POTASSIUM CHL 20 Meq TABLET PO ONE (10:45)
[2021-05-16] MEDS ORDERED: amLODIPine BESYLATE 5 MG TAB PO ONE (10:45)
[2021-05-16 13:00] VITALS: BP 172/108
[2021-05-16 17:00] VITALS: BP 155/92
[2021-05-16 21:00] VITALS: BP 148/89
[2021-05-17 05:00] VITALS: BP 139/109
[2021-05-17 05:18] LABS: Basophils # (auto) 0.1 10 ^3/uL (0-0.2); Basophils % (auto) 1.3 % (0.0-2.0); Eosinophils # (auto) 0.4 10 ^3/uL (0-0.8); Eosinophils % (auto) 4.3 % (0.0-7.0); Hematocrit 28.2 % (36.0-46.0); Hemoglobin 9.5 g/dL (12.2-16.2); Lymphocytes # (auto) 1.5 10 ^3/uL (0.4-5.4); Lymphocytes % (auto) 16.6 % (10.0-50.0); Mean Corpuscular Hemoglobin 30.5 pg (28.0-32.0); Mean Corpuscular Hgb Conc. 33.5 g/dL (32.0-36.0); Mean Corpuscular Volume 91.1 fL (80.0-100.0); Monocytes % (auto) 10.7 % (0.0-12.0); Neutrophils % (auto) 67.1 % (37.0-80.0); Red Blood Cells 3.09 10^6/uL (4.0-5.20); Red Cell Distribution Width 17.5 % (11.8-14.3); White Blood Cell 8.9 10^3/uL (4.4-10.8)
[2021-05-17 05:42] LABS: BUN/Creatinine Ratio 7.4; Calcium 8.7 mg/dL (8.5-10.1); Potassium 3.3 mmol/L (3.5-5.1)
[2021-05-17 09:00] VITALS: BP 150/96
[2021-05-17] MEDS: APIXABAN 2.5 MG TAB PO SCH (09:54)
[2021-05-17] MEDS: SODIUM CHLOR 0.9% PF (SALINE LOCK) 10ML VIAL/SYR IV SCH (09:54)
[2021-05-17] MEDS: FAMOTIDINE 20 MG TAB PO SCH (09:55)
[2021-05-17] MEDS: NYSTATIN TOPICAL POWDER 15GM TOP SCH (09:55)
[2021-05-17] MEDS ORDERED: amLODIPine BESYLATE 5 MG TAB PO SCH (10:00)
[2021-05-17] MEDS ORDERED: POTASSIUM CHL 20 Meq TABLET PO ONE (10:15)
== END 2021-05-17 12:15 | disposition home health service (06) | DRG 853 ==
LOC: EDBD 12:03 → ER 12:04 → TELE 18:56 → TELE-WESTW 20:45 → ICU WEST 04-17 09:43 → DOU IN ICU 04-17 13:49 → ICU WEST 04-17 14:27 → TELE-CENTR 05-08 16:07
PROVIDERS: ADMIT Family Medicine; ATTEND Internal Medicine
PROC: B519YZA Fluoroscopy of Inferior Vena Cava using Other Contrast, Guidance (ICD-10-PCS; principal; 2021-04-15)
PROC: 06C03ZZ Extirpation of Matter from Inferior Vena Cava, Percutaneous Approach (ICD-10-PCS; 2021-04-15)
PROC: 06CD3ZZ Extirpation of Matter from Left Common Iliac Vein, Percutaneous Approach (ICD-10-PCS; 2021-04-15)
PROC: 06CY3ZZ Extirpation of Matter from Lower Vein, Percutaneous Approach (ICD-10-PCS; 2021-04-15)
PROC: B51VYZA Fluoroscopy of Other Veins using Other Contrast, Guidance (ICD-10-PCS; 2021-04-15)
PROC: B51CYZA Fluoroscopy of Left Lower Extremity Veins using Other Contrast, Guidance (ICD-10-PCS; 2021-04-15)
PROC: B54NZZ3 Ultrasonography of Left Upper Extremity Veins, Intravascular (ICD-10-PCS; 2021-04-15)
PROC: 067D3ZZ Dilation of Left Common Iliac Vein, Percutaneous Approach (ICD-10-PCS; 2021-04-15)
PROC: 06703ZZ Dilation of Inferior Vena Cava, Percutaneous Approach (ICD-10-PCS; 2021-04-17)
PROC: 067D3ZZ Dilation of Left Common Iliac Vein, Percutaneous Approach (ICD-10-PCS; 2021-04-17)
PROC: 067C3ZZ Dilation of Right Common Iliac Vein, Percutaneous Approach (ICD-10-PCS; 2021-04-17)
PROC: B543ZZA Ultrasonography of Right Jugular Veins, Guidance (ICD-10-PCS; 2021-04-17)
PROC: B54DZZA Ultrasonography of Bilateral Lower Extremity Veins, Guidance (ICD-10-PCS; 2021-04-17)
PROC: B44LZZZ Ultrasonography of Femoral Artery (ICD-10-PCS; 2021-04-17)
PROC: B41CYZZ Fluoroscopy of Pelvic Arteries using Other Contrast (ICD-10-PCS; 2021-04-17)
PROC: B31UYZZ Fluoroscopy of Pulmonary Trunk using Other Contrast (ICD-10-PCS; 2021-04-17)
PROC: B549ZZ3 Ultrasonography of Inferior Vena Cava, Intravascular (ICD-10-PCS; 2021-04-17)
PROC: B54CZZ3 Ultrasonography of Left Lower Extremity Veins, Intravascular (ICD-10-PCS; 2021-04-17)
PROC: 05HY33Z Insertion of Infusion Device into Upper Vein, Percutaneous Approach (ICD-10-PCS; 2021-04-17)
PROC: 30233K1 Transfusion of Nonautologous Frozen Plasma into Peripheral Vein, Percutaneous Approach (ICD-10-PCS; 2021-04-17)
PROC: 30233N1 Transfusion of Nonautologous Red Blood Cells into Peripheral Vein, Percutaneous Approach (ICD-10-PCS; 2021-04-17)
PROC: 5A1955Z Respiratory Ventilation, Greater than 96 Consecutive Hours (ICD-10-PCS; 2021-04-17)
PROC: 0BH17EZ Insertion of Endotracheal Airway into Trachea, Via Natural or Artificial Opening (ICD-10-PCS; 2021-04-17)
PROC: 5A12012 Performance of Cardiac Output, Single, Manual (ICD-10-PCS; 2021-04-18)
PROC: 05HN33Z Insertion of Infusion Device into Left Internal Jugular Vein, Percutaneous Approach (ICD-10-PCS; 2021-04-19)
PROC: 5A1D70Z Performance of Urinary Filtration, Intermittent, Less than 6 Hours Per Day (ICD-10-PCS; 2021-04-20)
PROC: 30233R1 Transfusion of Nonautologous Platelets into Peripheral Vein, Percutaneous Approach (ICD-10-PCS; 2021-04-23)
PROC: 5A1D70Z Performance of Urinary Filtration, Intermittent, Less than 6 Hours Per Day (ICD-10-PCS; 2021-04-24)
PROC: 5A1D70Z Performance of Urinary Filtration, Intermittent, Less than 6 Hours Per Day (ICD-10-PCS; 2021-04-27)
PROC: 5A1D70Z Performance of Urinary Filtration, Intermittent, Less than 6 Hours Per Day (ICD-10-PCS; 2021-04-28)
PROC: 5A1D70Z Performance of Urinary Filtration, Intermittent, Less than 6 Hours Per Day (ICD-10-PCS; 2021-05-01)
PROC: 5A1D70Z Performance of Urinary Filtration, Intermittent, Less than 6 Hours Per Day (ICD-10-PCS; 2021-05-03)
PROC: 5A1D70Z Performance of Urinary Filtration, Intermittent, Less than 6 Hours Per Day (ICD-10-PCS; 2021-05-05)
PROC: 5A1D70Z Performance of Urinary Filtration, Intermittent, Less than 6 Hours Per Day (ICD-10-PCS; 2021-05-06)
DX: A41.9 Sepsis, unspecified organism (principal); G93.41 Metabolic encephalopathy; I26.93 Single subsegmental thrombotic pulmonary embolism without acute cor pulmonale; I46.9 Cardiac arrest, cause unspecified; J69.0 Pneumonitis due to inhalation of food and vomit; J96.01 Acute respiratory failure with hypoxia; K72.00 Acute and subacute hepatic failure without coma; K66.1 Hemoperitoneum; N17.0 Acute kidney failure with tubular necrosis; R57.1 Hypovolemic shock; R65.21 Severe sepsis with septic shock; D62 Acute posthemorrhagic anemia; D68.9 Coagulation defect, unspecified; D84.9 Immunodeficiency, unspecified; E87.0 Hyperosmolality and hypernatremia; E87.2 Acidosis; I82.422 Acute embolism and thrombosis of left iliac vein; J98.11 Atelectasis; K92.2 Gastrointestinal hemorrhage, unspecified; N39.0 Urinary tract infection, site not specified; D69.6 Thrombocytopenia, unspecified; E87.6 Hypokalemia; F12.90 Cannabis use, unspecified, uncomplicated; I10 Essential (primary) hypertension; K80.20 Calculus of gallbladder without cholecystitis without obstruction; N14.1 Nephropathy induced by other drugs, medicaments and biological substances; Z20.822 Contact with and (suspected) exposure to COVID-19; T50.8X5A Adverse effect of diagnostic agents, initial encounter; E11.65 Type 2 diabetes mellitus with hyperglycemia; F41.9 Anxiety disorder, unspecified; Z79.01 Long term (current) use of anticoagulants; Z82.3 Family history of stroke; Z82.49 Family history of ischemic heart disease and other diseases of the circulatory system; Z86.16 Personal history of COVID-19; Z87.01 Personal history of pneumonia (recurrent); Z99.2 Dependence on renal dialysis
CPT/HCPCS: 36415; 36569; 36600; 37187; 37221; 37248; 37249; 70450; 71045; 71260; 72170; 74176; 74177; 75736; 75743; 75822; 75825; 76700; 76937; 76942; 80048; 80053; 80074; 80202; 81001; 82140; 82270; 82565; 82570; 82728; 82784; 82805; 83540; 83550; 83615; 83735; 83880; 84100; 84156; 84300; 84439; 84443; 84481; 84484; 84520; 85007; 85014; 85018; 85025; 85027; 85610; 85730; 86160; 86334; 86335; 86850; 86900; 86901; 86920; 87040; 87070; 87077; 87081; 87086; 87088; 87205; 87426; 87493; 90935; 92610; 93005; 93971; 94002; 94003; 94640; 95819; 96365; 97110; 97116; 97163; 97530; 99152; 99153; C1894; G0378; J0330; J0696; J1450; J1642; J2001; J2185; J2250; J2405; J2543; J2704; J3480; J3490; J7060; P9047; Q9967